=== PATIENT | male | born 1945 | race Caucasian/White ===

== ENCOUNTER 2018-11-15 17:47 | Inpatient (IN) | payer MEDICARE, MEDICAID ==
[~2018-11-15] VITALS: Ht 154.9 cm; Wt 55.8 kg
[~2018-11-15 17:47] MED LIST: ALBU18HF2 IH; ASPI-1158 PO; BUDE6HFA INH; FINA5TAB11 PO; FLUT16SP15 BOTHNSTRLS; FLUT1DIS3 IH; FLUT50DI IH; FURO20TA4 PO; LOVA40TA73 PO; MONT10TA24 PO; OMEP-265 PO; PHEN100C4 PO; POTA10CA42 PO; PROM6.254 PO; TDUR2 PO; TERA1CAP4 PO
[2018-11-15] MEDS ORDERED: ALBUTEROL (0.083%) 2.5MG/3ML NEB HHN STA (18:25)
[2018-11-15] MEDS ORDERED: IPRATROPIUM BROMIDE (0.02%) 0.5MG/2.5ML NEB HHN STA (18:25)
[2018-11-15] MEDS ORDERED: METHYLPREDNISOLONE SOD SUCC 125 MG/2 ML VIAL IV STA (18:25)
[2018-11-15 20:44] LABS: CHLORIDE 104 mEq/L (98-107)
[2018-11-15 20:46] LABS: BASOPHILS % 0.4 % (0.0-2.0); EOSINOPHILS % 7.8 % (0.0-5.0); HEMATOCRIT. 42.8 % (42.0-52.0); HEMOGLOBIN. 14.3 g/dL (14.0-18.0); LYMPHOCYTES % 13.7 % (20.0-50.0); MONOCYTES % 6.3 % (2.0-8.0); NEUTROPHILS % 71.8 % (40.0-76.0); PLATELET 298 x1000/uL (130-400); RED BLOOD CELL COUNT 4.46 mill/uL (4.7-6.1)
[2018-11-16] MEDS ORDERED: HYDROCODONE/ACETAMINOPHEN 5/325MG TABLET PO PRN (01:15)
[2018-11-16] MEDS ORDERED: DOCUSATE SODIUM 100MG CAPSULE PO PRN (01:15)
[2018-11-16] MEDS ORDERED: ACETAMINOPHEN 650MG/20.3ML UDC GT PRN (01:15)
[2018-11-16] MEDS ORDERED: CLONIDINE 0.1MG TABLET PO PRN (01:15)
[2018-11-16] MEDS ORDERED: MAGNESIUM/ALUMINUM HYDROXIDE/SIMETHICONE 30ML UDC PO PRN (01:15)
[2018-11-16] MEDS ORDERED: ONDANSETRON HCL 4MG/2ML INJ IV PRN (01:15)
[2018-11-16] MEDS ORDERED: ACETAMINOPHEN 650MG SUPP PR PRN (01:15)
[2018-11-16] MEDS ORDERED: DIPHENHYDRAMINE 50MG/ML VIAL IV PRN (01:15)
[2018-11-16] MEDS ORDERED: LORAZEPAM 2MG/ML CPJ IV PRN (01:15)
[2018-11-16] MEDS ORDERED: GUAIFENESIN 200MG/10ML SUGAR FREE UDC PO PRN (01:15)
[2018-11-16] MEDS ORDERED: ACETAMINOPHEN 325MG TABLET PO PRN (01:15)
[2018-11-16 03:13] LABS: D-DIMER 0.42 mg/L FEU (<0.50); INR 1.1
[2018-11-16] MEDS: IPRATROPIUM/ALBUTEROL 0.5-3(2.5)MG/3ML NEB INH SCH ×4 (04:30→19:47)
[2018-11-16 08:40] VITALS: BP 125/70
[2018-11-16] MEDS ORDERED: NA PHOS,M-B/NA PHOS,DI-BA ENEMA 118ML PR PRN (09:00)
[2018-11-16 10:04] VITALS: BP 125/70
[2018-11-16] MEDS ORDERED: MULT-230 MT (10:32)
[2018-11-16] MEDS ORDERED: SIMV20TA6 MT (10:32)
[2018-11-16] MEDS ORDERED: POTA-9 MT (10:35)
[2018-11-16] MEDS: IPRATROPIUM/ALBUTEROL 0.5-3(2.5)MG/3ML NEB INH PRN (12:08)
[2018-11-16] MEDS: METHYLPREDNISOLONE SOD SUCC 125 MG/2 ML VIAL IV SCH ×3 (12:32→23:52)
[2018-11-16] MEDS: ENOXAPARIN 40MG/0.4ML SYR SUBCUT SCH (12:33)
[2018-11-16] MEDS: SODIUM CHLORIDE 0.9% INJ 3ML FLUSH IVF SCH ×3 (12:34→21:43)
[2018-11-16 16:00] VITALS: BP 117/68
[2018-11-16] MEDS ORDERED: MEDICATION NOT ON FORMULARY EA (Aspirin (Aspirin Ec) 81 MG) PO SCH (17:30)
[2018-11-16] MEDS: MONTELUKAST SODIUM 10MG TABLET PO SCH (18:14)
[2018-11-16] MEDS: PHENYTOIN SODIUM EXTENDED 100MG CAPSULE PO SCH (18:15)
[2018-11-16 20:00] VITALS: BP 104/65
[2018-11-16] MEDS ORDERED: MEDICATION NOT ON FORMULARY EA (Finasteride 5 MG) PO SCH (21:00)
[2018-11-16] MEDS: FINASTERIDE 5MG TABLET PO SCH (21:43)
[2018-11-16] MEDS: FLUTICASONE PROPIONATE 50MCG/SPRAY BOTTLE BOTHNSTRLS SCH (21:43)
[2018-11-17] VITALS: BP 96/49
[2018-11-17] MEDS: IPRATROPIUM/ALBUTEROL 0.5-3(2.5)MG/3ML NEB INH SCH ×4 (02:17→20:45)
[2018-11-17 04:00] VITALS: BP 98/57
[2018-11-17] MEDS: SODIUM CHLORIDE 0.9% INJ 3ML FLUSH IVF SCH ×3 (05:32→21:48)
[2018-11-17] MEDS: METHYLPREDNISOLONE SOD SUCC 125 MG/2 ML VIAL IV SCH (05:32)
[2018-11-17 07:33] LABS: BASOPHILS % 0.7 % (0.0-2.0); HEMOGLOBIN. 12.6 g/dL (14.0-18.0); LYMPHOCYTES % 9.7 % (20.0-50.0); MEAN CORPUSCULAR VOLUME 96.2 fL (80.0-94.0); MEAN PLATELET VOLUME 8.5 fl (7.4-10.4); MONOCYTES % 2.6 % (2.0-8.0); PLATELET 272 x1000/uL (130-400); RED BLOOD CELL COUNT 3.95 mill/uL (4.7-6.1); RED CELL DISTRIBUTION WIDTH 12.8 % (11.6-14.6)
[2018-11-17 08:00] VITALS: BP 109/59
[2018-11-17 09:14] LABS: CHLORIDE 107 mEq/L (98-107)
[2018-11-17 09:22] LABS: LDL CHOLESTEROL 62 mg/dL (5-100)
[2018-11-17 09:23] LABS: HDL CHOLESTEROL 86 mg/dL (40-59)
[2018-11-17] MEDS: ENOXAPARIN 40MG/0.4ML SYR SUBCUT SCH (11:00)
[2018-11-17] MEDS: PHENYTOIN SODIUM EXTENDED 100MG CAPSULE PO SCH (11:01)
[2018-11-17] MEDS: FLUTICASONE PROPIONATE 50MCG/SPRAY BOTTLE BOTHNSTRLS SCH (11:02)
[2018-11-17] MEDS: ASPIRIN 81MG EC TABLET PO SCH (11:02)
[2018-11-17 12:00] VITALS: BP 111/60
[2018-11-17] MEDS ORDERED: P50 MT (12:17)
[2018-11-17] MEDS: MONTELUKAST SODIUM 10MG TABLET PO SCH (16:44)
[2018-11-17] MEDS: FINASTERIDE 5MG TABLET PO SCH (17:02)
[2018-11-17] MEDS: METHYLPREDNISOLONE SOD SUCC 40 MG/ML VIAL IV SCH (17:06)
[2018-11-17] MEDS: IPRATROPIUM/ALBUTEROL 0.5-3(2.5)MG/3ML NEB INH PRN (17:43)
[2018-11-17 18:55] LABS: BG BASE EXCESS -2.2 mmol/L (-2.0-2.0); BG CARBOXYHEMOGLOBIN 0.8 % (0.5-1.5); BG DEOXYHEMOGLOBIN 7.8 % (0.0-5.0); BG FRACTION INSPIRED OXYGEN 40; BG HCO3 ACT 26.6 mmol/L (22.0-26.0); BG METHEMOGLOBIN 0.2 % (0.0-1.5); BG OXYGEN SATURATION 92.1 % (92.0-98.5); BG OXYHEMOGLOBIN 91.2 % (94.0-97.0); BG PCO2 63.9 mmHg (35.0-45.0); BG PH 7.238 (7.350-7.450); BG PO2 75.6 mmHg (75.0-100.0); BG SAMPLE SITE LEFT RADIAL; BG TOTAL HEMOGLOBIN 14.6 g/dL (12.0-18.0); BG VENT MODE MASK - VENTI
[2018-11-17] MEDS ORDERED: METHYLPREDNISOLONE SOD SUCC 125 MG/2 ML VIAL IV NR (20:00)
[2018-11-17 20:01] VITALS: BP 159/121
[2018-11-17 22:00] VITALS: BP 111/75
[2018-11-18] VITALS (13 sets, daily range): BP systolic 87–117; BP diastolic 46–95
[2018-11-18] MEDS: IPRATROPIUM/ALBUTEROL 0.5-3(2.5)MG/3ML NEB INH SCH ×6 (00:44→23:44)
[2018-11-18] MEDS: SODIUM CHLORIDE 0.9% INJ 3ML FLUSH IVF SCH ×3 (05:33→20:45)
[2018-11-18] MEDS: METHYLPREDNISOLONE SOD SUCC 40 MG/ML VIAL IV SCH ×2 (05:33→20:38)
[2018-11-18] MEDS: ENOXAPARIN 40MG/0.4ML SYR SUBCUT SCH (08:31)
[2018-11-18] MEDS: ASPIRIN 81MG EC TABLET PO SCH (08:31)
[2018-11-18] MEDS: PHENYTOIN SODIUM EXTENDED 100MG CAPSULE PO SCH (08:31)
[2018-11-18 09:45] LABS: BG BASE EXCESS 2.1 mmol/L (-2.0-2.0); BG CARBOXYHEMOGLOBIN 0.9 % (0.5-1.5); BG DEOXYHEMOGLOBIN 2.5 % (0.0-5.0); BG FRACTION INSPIRED OXYGEN 30; BG HCO3 ACT 26.1 mmol/L (22.0-26.0); BG METHEMOGLOBIN 0.3 % (0.0-1.5); BG OXYGEN SATURATION 97.5 % (92.0-98.5); BG OXYHEMOGLOBIN 96.3 % (94.0-97.0); BG PCO2 38.7 mmHg (35.0-45.0); BG PH 7.447 (7.350-7.450); BG PO2 91.9 mmHg (75.0-100.0); BG SAMPLE SITE LEFT BRACHIAL; BG TOTAL HEMOGLOBIN 13.6 g/dL (12.0-18.0); BG VENT MODE NASAL CANNULA
[2018-11-18] MEDS: FLUTICASONE PROPIONATE 50MCG/SPRAY BOTTLE BOTHNSTRLS SCH (10:01)
[2018-11-18] MEDS ORDERED: PANTOPRAZOLE SODIUM 40 MG/VIAL IV NR (12:45)
[2018-11-18 15:24] LABS: BASOPHILS % 0.7 % (0.0-2.0); EOSINOPHILS % 0.4 % (0.0-5.0); HEMATOCRIT. 38.1 % (42.0-52.0); LYMPHOCYTES % 25.7 % (20.0-50.0); MEAN CORPUSCULAR HEMOGLOBIN 32.4 pg (28.0-32.0); MEAN CORPUSCULAR VOLUME 95.3 fL (80.0-94.0); MEAN PLATELET VOLUME 7.7 fl (7.4-10.4); MONOCYTES % 6.3 % (2.0-8.0); NEUTROPHILS % 66.9 % (40.0-76.0); PLATELET 317 x1000/uL (130-400); RED CELL DISTRIBUTION WIDTH 12.9 % (11.6-14.6)
[2018-11-18 15:30] LABS: CHLORIDE 106 mEq/L (98-107)
[2018-11-18] MEDS: BUDESONIDE 0.5MG/2ML NEB HHN SCH ×2 (15:40→19:55)
[2018-11-18] MEDS: FINASTERIDE 5MG TABLET PO SCH (18:03)
[2018-11-18] MEDS: MONTELUKAST SODIUM 10MG TABLET PO SCH (18:03)
[2018-11-18 19:18] LABS: CLARITY URINE CLOUDY (CLEAR); COLOR URINE YELLOW (YELLOW); KETONES URINE TRACE (NEGATIVE); LEUKOCYTE ESTERASE URINE NEGATIVE (NEGATIVE); NITRITE URINE NEGATIVE (NEGATIVE); OCCULT BLOOD URINE NEGATIVE (NEGATIVE); PROTEIN URINE TRACE (NEGATIVE); SPECIFIC GRAVITY URINE 1.033 (1.005-1.030)
[2018-11-18 19:31] LABS: *AMPHETAMINES SCREEN URINE NEGATIVE (NEGATIVE); *BARBITURATES SCREEN URINE NEGATIVE (NEGATIVE); *BENZODIAZEPINES SCREEN URINE NEGATIVE (NEGATIVE); *COCAINE SCREEN URINE NEGATIVE (NEGATIVE); METHADONE URINE SCREEN NEGATIVE (NEGATIVE); OPIATES URINE SCREEN NEGATIVE (NEGATIVE)
[2018-11-18 19:32] LABS: CANNABINOID URINE SCREEN NEGATIVE (NEGATIVE); PHENCYCLIDINE URINE SCREEN NEGATIVE (NEGATIVE)
[2018-11-18] MEDS: PREDNISONE 20MG TABLET PO SCH ×2 (20:15→20:38)
[2018-11-19] VITALS (14 sets, daily range): BP systolic 84–144; BP diastolic 55–84
[2018-11-19] MEDS: IPRATROPIUM/ALBUTEROL 0.5-3(2.5)MG/3ML NEB INH SCH ×6 (03:55→23:44)
[2018-11-19] MEDS: SODIUM CHLORIDE 0.9% INJ 3ML FLUSH IVF SCH ×3 (06:00→22:19)
[2018-11-19] MEDS: BUDESONIDE 0.5MG/2ML NEB HHN SCH ×2 (07:50→19:59)
[2018-11-19] MEDS: METHYLPREDNISOLONE SOD SUCC 40 MG/ML VIAL IV SCH (08:12)
[2018-11-19] MEDS: PHENYTOIN SODIUM EXTENDED 100MG CAPSULE PO SCH (08:12)
[2018-11-19] MEDS: PREDNISONE 20MG TABLET PO SCH (08:12)
[2018-11-19] MEDS: ASPIRIN 81MG EC TABLET PO SCH (08:12)
[2018-11-19] MEDS: ENOXAPARIN 40MG/0.4ML SYR SUBCUT SCH (08:13)
[2018-11-19] MEDS: FLUTICASONE PROPIONATE 50MCG/SPRAY BOTTLE BOTHNSTRLS SCH (08:13)
[2018-11-19] MEDS ORDERED: PANTOPRAZOLE SODIUM 40 MG/VIAL IV SCH (09:00)
[2018-11-19] MEDS: MONTELUKAST SODIUM 10MG TABLET PO SCH (17:05)
[2018-11-19] MEDS: FINASTERIDE 5MG TABLET PO SCH (17:05)
== END 2018-11-20 01:30 | disposition home or self-care (01) | DRG 189 ==
LOC: ER 17:47 → EDBEDREQ 21:23 → 8WST 11-16 07:50 → ENRESERV 11-16 07:50 → 5EST 11-17 18:46
PROVIDERS: ADMIT Family Medicine; ATTEND Family Medicine
PROC: 5A09357 Assistance with Respiratory Ventilation, Less than 24 Consecutive Hours, Continuous Positive Airway Pressure (ICD-10-PCS; principal; 2018-11-17)
DX: J96.00 Acute respiratory failure, unspecified whether with hypoxia or hypercapnia (principal); J44.1 Chronic obstructive pulmonary disease with (acute) exacerbation; E46 Unspecified protein-calorie malnutrition; G40.909 Epilepsy, unspecified, not intractable, without status epilepticus; N40.0 Benign prostatic hyperplasia without lower urinary tract symptoms; E78.5 Hyperlipidemia, unspecified; J32.9 Chronic sinusitis, unspecified; J98.4 Other disorders of lung; K21.9 Gastro-esophageal reflux disease without esophagitis; M24.571 Contracture, right ankle; M24.572 Contracture, left ankle; G80.9 Cerebral palsy, unspecified; L57.0 Actinic keratosis; D63.8 Anemia in other chronic diseases classified elsewhere; Z68.23 Body mass index [BMI] 23.0-23.9, adult; L89.621 Pressure ulcer of left heel, stage 1; L89.611 Pressure ulcer of right heel, stage 1
CPT/HCPCS: 36415; 36600; 71045; 80061; 80305; 82375; 82805; 83880; 84484; 85379; 87804; 92610; 93005; 93306; 94640; 96374; 99285; C1725; C9113; J1650; J2920; J2930; J7512; J7620; J7626; A4315

== ENCOUNTER 2018-12-11 12:19 | Inpatient (IN) | payer MEDICARE, MEDICAID ==
[~2018-12-11] VITALS: Ht 152.4 cm; Wt 44.5 kg
[~2018-12-11 12:19] MED LIST changes: -LOVA40TA73 PO; +MULT-230 MT; +P50 MT; +POTA-9 MT; -POTA10CA42 PO; -PROM6.254 PO; +SIMV20TA6 MT; -TERA1CAP4 PO
[2018-12-11] MEDS ORDERED: ALBUTEROL (0.083%) 2.5MG/3ML NEB HHN STA (12:26)
[2018-12-11] MEDS ORDERED: METHYLPREDNISOLONE SOD SUCC 125 MG/2 ML VIAL IV STA (12:26)
[2018-12-11] MEDS ORDERED: MAGNESIUM 2 G PREMIX 50 ML IV STA (12:26)
[2018-12-11] MEDS ORDERED: IPRATROPIUM BROMIDE (0.02%) 0.5MG/2.5ML NEB HHN STA (12:26)
[2018-12-11 13:05] LABS: CHLORIDE 98 mEq/L (98-107)
[2018-12-11 13:06] LABS: HEMATOCRIT. 43.6 % (42.0-52.0); HEMOGLOBIN. 14.4 g/dL (14.0-18.0); MEAN CORPUSCULAR HEMOGLOBIN 32.1 pg (28.0-32.0); MEAN CORPUSCULAR VOLUME 97.5 fL (80.0-94.0); MEAN PLATELET VOLUME 7.5 fl (7.4-10.4); PLATELET 241 x1000/uL (130-400); PROTHROMBIN TIME 10.2 sec (9.1-11.1); RED BLOOD CELL COUNT 4.48 mill/uL (4.7-6.1); RED CELL DISTRIBUTION WIDTH 13.8 % (11.6-14.6)
[2018-12-11 13:59] LABS: PLATELET ESTIMATE NORMAL
[2018-12-11 14:07] LABS: BG BASE EXCESS 3.6 mmol/L (-2.0-2.0); BG BILEVEL POS AIRWAY PRESSURE ST=15/5; BG CARBOXYHEMOGLOBIN 0.6 % (0.5-1.5); BG DEOXYHEMOGLOBIN 0.4 % (0.0-5.0); BG FRACTION INSPIRED OXYGEN 99.8; BG HCO3 ACT 27.8 mmol/L (22.0-26.0); BG METHEMOGLOBIN 0.2 % (0.0-1.5); BG OXYGEN SATURATION 99.6 % (92.0-98.5); BG OXYHEMOGLOBIN 98.8 % (94.0-97.0); BG PCO2 40.6 mmHg (35.0-45.0); BG PH 7.453 (7.350-7.450); BG PO2 330.4 mmHg (75.0-100.0); BG PRESSURE SUPPORT 10; BG SAMPLE SITE LEFT BRACHIAL; BG TOTAL HEMOGLOBIN 14.3 g/dL (12.0-18.0); BG VENT RATE 14 set
[2018-12-11] MEDS ORDERED: IPRATROPIUM/ALBUTEROL 0.5-3(2.5)MG/3ML NEB HHN PRN (14:15)
[2018-12-11] MEDS ORDERED: LORAZEPAM 0.5MG TABLET PO PRN (15:00)
[2018-12-11] MEDS ORDERED: ONDANSETRON HCL 4MG/2ML INJ IV PRN (15:00)
[2018-12-11] MEDS ORDERED: ASPIRIN 81MG TABLET PO SCH ×2 (15:00→22:00)
[2018-12-11] MEDS ORDERED: DEXT 5%/0.9% NACL 1,000 ML IV ONE (15:00)
[2018-12-11] MEDS ORDERED: DOCUSATE SODIUM 100MG CAPSULE PO PRN (15:00)
[2018-12-11] MEDS ORDERED: ACETAMINOPHEN 325MG TABLET PO PRN (15:00)
[2018-12-11] MEDS ORDERED: HYDROCODONE/ACETAMINOPHEN 5/325MG TABLET PO PRN (15:00)
[2018-12-11] MEDS ORDERED: CLONIDINE 0.1MG TABLET PO PRN (15:00)
[2018-12-11] MEDS ORDERED: LEVOFLOXACIN 500MG PREMIX 100 ML IV ONE ×2 (15:45→23:00)
[2018-12-11 15:57] LABS: THEOPHYLLINE 5.8 ug/mL (10-20)
[2018-12-11 16:17] LABS: CLARITY URINE CLEAR (CLEAR); COLOR URINE YELLOW (YELLOW); KETONES URINE NEGATIVE (NEGATIVE); LEUKOCYTE ESTERASE URINE NEGATIVE (NEGATIVE); NITRITE URINE NEGATIVE (NEGATIVE); OCCULT BLOOD URINE 2+ (NEGATIVE); PROTEIN URINE NEGATIVE (NEGATIVE); UROBILINOGEN URINE 0.2 E.U./dL (0.2-1.0)
[2018-12-11] MEDS: IPRATROPIUM BROMIDE (0.02%) 0.5MG/2.5ML NEB HHN SCH (20:15)
[2018-12-11] MEDS ORDERED: AZITHROMYCIN 500 MG in DEXT 5% WATER 250 ML IV SCH (22:00)
[2018-12-11] MEDS: METHYLPREDNISOLONE SOD SUCC 40 MG/ML VIAL IV SCH (22:04)
[2018-12-11] MEDS: PHENYTOIN SODIUM EXTENDED 100MG CAPSULE PO SCH (22:05)
[2018-12-11] MEDS: ATORVASTATIN CALCIUM 20MG TABLET PO SCH (22:05)
[2018-12-11] MEDS: OMEPRAZOLE 20MG CAPSULE EXTENDED RELEASE PO SCH (22:06)
[2018-12-11] MEDS: MONTELUKAST SODIUM 10MG TABLET PO SCH (22:06)
[2018-12-11 23:31] VITALS: BP 98/51
[2018-12-12] VITALS (12 sets, daily range): BP systolic 98–134; BP diastolic 35–74
[2018-12-12] MEDS: BUDESONIDE 0.5MG/2ML NEB HHN SCH ×3 (00:18→21:06)
[2018-12-12] MEDS: IPRATROPIUM BROMIDE (0.02%) 0.5MG/2.5ML NEB HHN SCH ×4 (00:18→21:06)
[2018-12-12] MEDS: METHYLPREDNISOLONE SOD SUCC 40 MG/ML VIAL IV SCH ×2 (04:41→12:43)
[2018-12-12 07:43] LABS: CHLORIDE 101 mEq/L (98-107)
[2018-12-12 07:50] LABS: BASOPHILS % 0.4 % (0.0-2.0); EOSINOPHILS % 0.4 % (0.0-5.0); HEMATOCRIT. 38.3 % (42.0-52.0); HEMOGLOBIN. 12.9 g/dL (14.0-18.0); LYMPHOCYTES % 16.3 % (20.0-50.0); MEAN CORPUSCULAR HEMOGLOBIN 32.5 pg (28.0-32.0); MEAN CORPUSCULAR VOLUME 96.3 fL (80.0-94.0); MEAN PLATELET VOLUME 7.7 fl (7.4-10.4); MONOCYTES % 7.3 % (2.0-8.0); NEUTROPHILS % 75.6 % (40.0-76.0); PLATELET 256 x1000/uL (130-400); RED BLOOD CELL COUNT 3.98 mill/uL (4.7-6.1); RED CELL DISTRIBUTION WIDTH 13.7 % (11.6-14.6)
[2018-12-12] MEDS ORDERED: OMEPRAZOLE 20MG CAPSULE EXTENDED RELEASE PO SCH (07:50)
[2018-12-12] MEDS: FINASTERIDE 5MG TABLET PO SCH (09:03)
[2018-12-12] MEDS: PHENYTOIN SODIUM EXTENDED 100MG CAPSULE PO SCH (09:03)
[2018-12-12] MEDS: OMEPRAZOLE 20MG CAPSULE EXTENDED RELEASE PO SCH (09:04)
[2018-12-12] MEDS: MULTIVITAMINS,THER W-MINERALS TABLET PO SCH (09:05)
[2018-12-12] MEDS: FLUTICASONE PROPIONATE 50MCG/SPRAY BOTTLE BOTHNSTRLS SCH (09:13)
[2018-12-12] MEDS ORDERED: AZITHROMYCIN 500 MG in DEXT 5% WATER 250 ML IV SCH (18:00)
[2018-12-12] MEDS: MONTELUKAST SODIUM 10MG TABLET PO SCH (18:29)
[2018-12-12] MEDS: ATORVASTATIN CALCIUM 20MG TABLET PO SCH (20:40)
[2018-12-12] MEDS: LEVETIRACETAM 500MG TABLET PO SCH (20:40)
[2018-12-13] VITALS (12 sets, daily range): BP systolic 94–143; BP diastolic 48–73
[2018-12-13] MEDS: IPRATROPIUM BROMIDE (0.02%) 0.5MG/2.5ML NEB HHN SCH ×4 (02:04→20:47)
[2018-12-13 07:15] LABS: HEMATOCRIT. 37.7 % (42.0-52.0); HEMOGLOBIN. 12.7 g/dL (14.0-18.0); MEAN CORPUSCULAR HEMOGLOBIN 32.5 pg (28.0-32.0); MEAN CORPUSCULAR VOLUME 96.6 fL (80.0-94.0); MEAN PLATELET VOLUME 7.9 fl (7.4-10.4); PLATELET 254 x1000/uL (130-400); RED CELL DISTRIBUTION WIDTH 13.9 % (11.6-14.6)
[2018-12-13 07:25] LABS: CHLORIDE 108 mEq/L (98-107)
[2018-12-13] MEDS: BUDESONIDE 0.5MG/2ML NEB HHN SCH ×2 (08:15→20:47)
[2018-12-13] MEDS: OMEPRAZOLE 20MG CAPSULE EXTENDED RELEASE PO SCH (08:17)
[2018-12-13] MEDS: PREDNISONE 20MG TABLET PO SCH (09:15)
[2018-12-13] MEDS: LEVETIRACETAM 500MG TABLET PO SCH ×2 (09:15→20:53)
[2018-12-13] MEDS: MULTIVITAMINS,THER W-MINERALS TABLET PO SCH (09:15)
[2018-12-13] MEDS: FINASTERIDE 5MG TABLET PO SCH (09:15)
[2018-12-13] MEDS: FLUTICASONE PROPIONATE 50MCG/SPRAY BOTTLE BOTHNSTRLS SCH (09:15)
[2018-12-13] MEDS: MONTELUKAST SODIUM 10MG TABLET PO SCH (17:29)
[2018-12-13 18:06] LABS: PLATELET ESTIMATE NORMAL
[2018-12-13] MEDS: ATORVASTATIN CALCIUM 20MG TABLET PO SCH (20:53)
[2018-12-14] VITALS (11 sets, daily range): BP systolic 87–129; BP diastolic 46–84
[2018-12-14] MEDS: IPRATROPIUM BROMIDE (0.02%) 0.5MG/2.5ML NEB HHN SCH ×4 (02:15→20:10)
[2018-12-14 07:30] LABS: CHLORIDE 108 mEq/L (98-107)
[2018-12-14] MEDS: BUDESONIDE 0.5MG/2ML NEB HHN SCH ×2 (07:51→20:09)
[2018-12-14 08:03] LABS: HEMATOCRIT. 39.8 % (42.0-52.0); HEMOGLOBIN. 13.3 g/dL (14.0-18.0); MEAN CORPUSCULAR VOLUME 96.2 fL (80.0-94.0); MEAN PLATELET VOLUME 7.8 fl (7.4-10.4); PLATELET 280 x1000/uL (130-400); RED BLOOD CELL COUNT 4.14 mill/uL (4.7-6.1); RED CELL DISTRIBUTION WIDTH 13.8 % (11.6-14.6)
[2018-12-14] MEDS: PREDNISONE 20MG TABLET PO SCH (08:33)
[2018-12-14] MEDS: MULTIVITAMINS,THER W-MINERALS TABLET PO SCH (08:33)
[2018-12-14] MEDS: LEVETIRACETAM 500MG TABLET PO SCH ×2 (08:33→20:46)
[2018-12-14] MEDS: OMEPRAZOLE 20MG CAPSULE EXTENDED RELEASE PO SCH (08:33)
[2018-12-14] MEDS: FINASTERIDE 5MG TABLET PO SCH (08:33)
[2018-12-14] MEDS: FLUTICASONE PROPIONATE 50MCG/SPRAY BOTTLE BOTHNSTRLS SCH (09:04)
[2018-12-14 12:49] LABS: PLATELET ESTIMATE NORMAL
[2018-12-14] MEDS: MONTELUKAST SODIUM 10MG TABLET PO SCH (17:32)
[2018-12-14] MEDS: ATORVASTATIN CALCIUM 20MG TABLET PO SCH (20:46)
[2018-12-15] VITALS: BP 91/45
[2018-12-15] MEDS: IPRATROPIUM BROMIDE (0.02%) 0.5MG/2.5ML NEB HHN SCH ×3 (00:55→14:38)
[2018-12-15 02:00] VITALS: BP 110/64
[2018-12-15 04:00] VITALS: BP 113/69
[2018-12-15 06:00] VITALS: BP 117/68
[2018-12-15 07:57] LABS: BASOPHILS % 0.7 % (0.0-2.0); EOSINOPHILS % 4.9 % (0.0-5.0); HEMATOCRIT. 41.4 % (42.0-52.0); HEMOGLOBIN. 13.9 g/dL (14.0-18.0); LYMPHOCYTES % 34.3 % (20.0-50.0); MEAN CORPUSCULAR HEMOGLOBIN 32.1 pg (28.0-32.0); MEAN CORPUSCULAR VOLUME 95.9 fL (80.0-94.0); MEAN PLATELET VOLUME 7.7 fl (7.4-10.4); MONOCYTES % 6.4 % (2.0-8.0); NEUTROPHILS % 53.7 % (40.0-76.0); PLATELET 301 x1000/uL (130-400); RED BLOOD CELL COUNT 4.32 mill/uL (4.7-6.1); RED CELL DISTRIBUTION WIDTH 13.4 % (11.6-14.6)
[2018-12-15] MEDS: BUDESONIDE 0.5MG/2ML NEB HHN SCH (07:59)
[2018-12-15 08:00] VITALS: BP 122/67
[2018-12-15 08:06] LABS: CHLORIDE 106 mEq/L (98-107)
[2018-12-15] MEDS: PREDNISONE 20MG TABLET PO SCH (08:37)
[2018-12-15] MEDS: OMEPRAZOLE 20MG CAPSULE EXTENDED RELEASE PO SCH (08:37)
[2018-12-15] MEDS: LEVETIRACETAM 500MG TABLET PO SCH (08:37)
[2018-12-15] MEDS: FINASTERIDE 5MG TABLET PO SCH (08:37)
[2018-12-15] MEDS: MULTIVITAMINS,THER W-MINERALS TABLET PO SCH (08:37)
[2018-12-15] MEDS ORDERED: KEPP500 PO (11:48)
[2018-12-15] MEDS ORDERED: ATOR20TA PO (11:48)
[2018-12-15] MEDS ORDERED: PRED1TAB MT (11:48)
[2018-12-15] MEDS: MONTELUKAST SODIUM 10MG TABLET PO SCH (17:38)
[2018-12-15 17:52] VITALS: BP 129/73
== END 2018-12-15 18:47 | disposition home or self-care (01) | DRG 189 ==
LOC: ER 12:19 → EDBEDREQSVC 12:34 → 5EST 13:58 → EDBEDREQTM 14:16 → EDBEDREQ 14:16 → ENRESERV 17:54 → EDBEDREQ 19:49 → 5EST 12-14 15:45
PROVIDERS: ADMIT Internal Medicine; ATTEND Internal Medicine
PROC: 5A09357 Assistance with Respiratory Ventilation, Less than 24 Consecutive Hours, Continuous Positive Airway Pressure (ICD-10-PCS; principal; 2018-12-11)
DX: J96.01 Acute respiratory failure with hypoxia (principal); J44.1 Chronic obstructive pulmonary disease with (acute) exacerbation; T42.0X5A Adverse effect of hydantoin derivatives, initial encounter; I10 Essential (primary) hypertension; R00.0 Tachycardia, unspecified; D72.829 Elevated white blood cell count, unspecified; Z53.20 Procedure and treatment not carried out because of patient's decision for unspecified reasons; J32.9 Chronic sinusitis, unspecified; G40.909 Epilepsy, unspecified, not intractable, without status epilepticus; N40.0 Benign prostatic hyperplasia without lower urinary tract symptoms; G80.9 Cerebral palsy, unspecified; E78.5 Hyperlipidemia, unspecified; Y92.89 Other specified places as the place of occurrence of the external cause; Z79.899 Other long term (current) drug therapy
CPT/HCPCS: 36415; 36600; 70551; 71045; 80048; 80185; 80198; 82375; 82805; 83605; 83880; 84145; 84484; 87804; 93005; 94640; 96365; 96375; 99291; J0456; J1956; J2920; J2930; J3475; J7042; J7060; J7512; J7611; J7620; J7626

== ENCOUNTER 2019-01-20 00:49 | Inpatient (IN) | payer MEDICARE, MEDICAID ==
[~2019-01-20] VITALS: Ht 162.6 cm; Wt 44.6 kg
[~2019-01-20 00:49] MED LIST changes: +ATOR20TA PO; -BUDE6HFA INH; -FLUT16SP15 BOTHNSTRLS; -FURO20TA4 PO; +KEPP500 PO; -P50 MT; -PHEN100C4 PO; -POTA-9 MT; -SIMV20TA6 MT; -TDUR2 PO
[2019-01-20] MEDS ORDERED: IPRATROPIUM BROMIDE (0.02%) 0.5MG/2.5ML NEB HHN STA (01:50)
[2019-01-20] MEDS ORDERED: ONDANSETRON HCL 4MG/2ML INJ IV STA (01:50)
[2019-01-20] MEDS ORDERED: METHYLPREDNISOLONE SOD SUCC 125 MG/2 ML VIAL IV STA (01:50)
[2019-01-20] MEDS ORDERED: MAGNESIUM 2 G PREMIX 50 ML IV ONE (02:00)
[2019-01-20] MEDS: ALBUTEROL (0.083%) 2.5MG/3ML NEB HHN SCH ×3 (02:14→03:30)
[2019-01-20 02:35] LABS: CHLORIDE 102 mEq/L (98-107)
[2019-01-20 02:39] LABS: BG BASE EXCESS 3.5 mmol/L (-2.0-2.0); BG CARBOXYHEMOGLOBIN 0.4 % (0.5-1.5); BG DEOXYHEMOGLOBIN 4.1 % (0.0-5.0); BG FRACTION INSPIRED OXYGEN 28; BG HCO3 ACT 27.6 mmol/L (22.0-26.0); BG METHEMOGLOBIN 0.1 % (0.0-1.5); BG OXYGEN SATURATION 95.9 % (92.0-98.5); BG OXYHEMOGLOBIN 95.4 % (94.0-97.0); BG PCO2 40.2 mmHg (35.0-45.0); BG PH 7.455 (7.350-7.450); BG PO2 82.7 mmHg (75.0-100.0); BG SAMPLE SITE LEFT RADIAL; BG TOTAL HEMOGLOBIN 12.8 g/dL (12.0-18.0); BG VENT MODE NASAL CANNULA
[2019-01-20 02:40] LABS: HEMATOCRIT. 38.1 % (42.0-52.0); HEMOGLOBIN. 13.1 g/dL (14.0-18.0); MEAN CORPUSCULAR HEMOGLOBIN 32.8 pg (28.0-32.0); MEAN CORPUSCULAR VOLUME 95.4 fL (80.0-94.0); MEAN PLATELET VOLUME 7.7 fl (7.4-10.4); PLATELET 331 x1000/uL (130-400); RED BLOOD CELL COUNT 3.99 mill/uL (4.7-6.1); RED CELL DISTRIBUTION WIDTH 13.9 % (11.6-14.6)
[2019-01-20 09:43] LABS: PLATELET ESTIMATE NORMAL
[2019-01-20] MEDS ORDERED: GUAIFENESIN 200MG/10ML SUGAR FREE UDC PO PRN (09:45)
[2019-01-20] MEDS ORDERED: NITROGLYCERIN 0.4MG TABLET SL SL PRN (09:45)
[2019-01-20] MEDS ORDERED: CLONIDINE 0.1MG TABLET PO PRN (09:45)
[2019-01-20] MEDS ORDERED: ONDANSETRON HCL 4MG/2ML INJ IV PRN (09:45)
[2019-01-20] MEDS ORDERED: MAGNESIUM/ALUMINUM HYDROXIDE/SIMETHICONE 30ML UDC PO PRN (09:45)
[2019-01-20] MEDS ORDERED: NA PHOS,M-B/NA PHOS,DI-BA ENEMA 118ML PR PRN (09:45)
[2019-01-20] MEDS ORDERED: LEVOFLOXACIN 500MG PREMIX 100 ML IV SCH (09:45)
[2019-01-20] MEDS ORDERED: DOCUSATE SODIUM 100MG CAPSULE PO PRN (09:45)
[2019-01-20] MEDS ORDERED: ACETAMINOPHEN 325MG TABLET PO PRN (09:45)
[2019-01-20] MEDS ORDERED: LEVOFLOXACIN 500MG PREMIX 100 ML IV NR ×2 (12:00→15:30)
[2019-01-20] MEDS ORDERED: HALOPERIDOL LACTATE 5MG/ML VIAL IM PRN (14:18)
[2019-01-20] MEDS ORDERED: TRAMADOL 50MG TABLET PO PRN (14:25)
[2019-01-20 15:54] LABS: CREATINE KINASE 181 IU/L (39-308)
[2019-01-20 15:55] LABS: CREATINE KINASE MB FRACTION 2.1 ng/mL (0.5-3.6)
[2019-01-20] MEDS: GUAIFENESIN/DM 600MG/30MG ER TAB 12HR PO SCH (17:30)
[2019-01-20] MEDS: METHYLPREDNISOLONE SOD SUCC 125 MG/2 ML VIAL IV SCH ×2 (17:31→21:35)
[2019-01-20] MEDS: ENOXAPARIN 40MG/0.4ML SYR SUBCUT SCH (17:32)
[2019-01-20 18:37] VITALS: BP 120/67
[2019-01-20 18:39] VITALS: BP 120/67
[2019-01-20 20:12] VITALS: BP 117/73
[2019-01-20 20:45] VITALS: BP 108/58
[2019-01-20] MEDS: FAMOTIDINE 20MG TABLET PO SCH (21:35)
[2019-01-20] MEDS: LEVETIRACETAM 500MG TABLET PO SCH (21:35)
[2019-01-20] MEDS: ZOLPIDEM TARTRATE 5MG TABLET PO PRN (21:35)
[2019-01-20] MEDS: ASCORBIC ACID 500 MG TABLET PO SCH (21:35)
[2019-01-20] MEDS: IPRATROPIUM/ALBUTEROL 0.5-3(2.5)MG/3ML NEB INH PRN (21:42)
[2019-01-20 21:45] VITALS: BP 126/63
[2019-01-20 23:45] VITALS: BP 113/62
[2019-01-20 23:56] LABS: CREATINE KINASE 180 IU/L (39-308)
[2019-01-20 23:57] LABS: CREATINE KINASE MB FRACTION 2.2 ng/mL (0.5-3.6)
[2019-01-21] VITALS (18 sets, daily range): BP systolic 90–187; BP diastolic 55–107
[2019-01-21] MEDS: METHYLPREDNISOLONE SOD SUCC 125 MG/2 ML VIAL IV SCH ×3 (06:09→21:27)
[2019-01-21] MEDS: GUAIFENESIN/DM 600MG/30MG ER TAB 12HR PO SCH ×2 (06:09→17:15)
[2019-01-21] MEDS: IPRATROPIUM/ALBUTEROL 0.5-3(2.5)MG/3ML NEB INH PRN ×2 (06:23→13:05)
[2019-01-21] MEDS: ASCORBIC ACID 500 MG TABLET PO SCH ×2 (08:39→21:27)
[2019-01-21] MEDS: LEVETIRACETAM 500MG TABLET PO SCH ×2 (08:39→21:27)
[2019-01-21] MEDS: ZINC SULFATE 220 MG ( 50 ) CAPSULE PO SCH (08:39)
[2019-01-21] MEDS: ASPIRIN 325MG EC TABLET PO SCH (08:39)
[2019-01-21] MEDS ORDERED: METHYLPREDNISOLONE SOD SUCC 125 MG/2 ML VIAL IV SCH (14:00)
[2019-01-21] MEDS: LORATADINE 10MG TABLET PO SCH (14:12)
[2019-01-21] MEDS: ENOXAPARIN 40MG/0.4ML SYR SUBCUT SCH (15:14)
[2019-01-21] MEDS: LEVOFLOXACIN 250MG PREMIX 50 ML IV SCH (15:14)
[2019-01-21] MEDS: IPRATROPIUM BROMIDE (0.02%) 0.5MG/2.5ML NEB HHN SCH (15:51)
[2019-01-21] MEDS: MONTELUKAST SODIUM 10MG TABLET PO SCH (17:15)
[2019-01-21] MEDS: ZOLPIDEM TARTRATE 5MG TABLET PO PRN (21:27)
[2019-01-21] MEDS: FAMOTIDINE 20MG TABLET PO SCH (21:27)
[2019-01-22] VITALS (15 sets, daily range): BP systolic 95–168; BP diastolic 49–88
[2019-01-22] MEDS: IPRATROPIUM/ALBUTEROL 0.5-3(2.5)MG/3ML NEB INH PRN (04:27)
[2019-01-22] MEDS: GUAIFENESIN/DM 600MG/30MG ER TAB 12HR PO SCH ×2 (06:40→18:10)
[2019-01-22] MEDS: METHYLPREDNISOLONE SOD SUCC 125 MG/2 ML VIAL IV SCH ×3 (06:40→21:17)
[2019-01-22] MEDS: IPRATROPIUM BROMIDE (0.02%) 0.5MG/2.5ML NEB HHN SCH ×5 (08:32→23:35)
[2019-01-22] MEDS: LORATADINE 10MG TABLET PO SCH (08:53)
[2019-01-22] MEDS: LEVETIRACETAM 500MG TABLET PO SCH ×2 (08:53→21:17)
[2019-01-22] MEDS: ZINC SULFATE 220 MG ( 50 ) CAPSULE PO SCH (08:53)
[2019-01-22] MEDS: ASPIRIN 325MG EC TABLET PO SCH (08:54)
[2019-01-22] MEDS: ASCORBIC ACID 500 MG TABLET PO SCH ×2 (08:54→21:17)
[2019-01-22] MEDS: LEVOFLOXACIN 250MG PREMIX 50 ML IV SCH (15:04)
[2019-01-22] MEDS: ENOXAPARIN 40MG/0.4ML SYR SUBCUT SCH (15:04)
[2019-01-22] MEDS: MONTELUKAST SODIUM 10MG TABLET PO SCH (18:10)
[2019-01-22] MEDS: ZOLPIDEM TARTRATE 5MG TABLET PO PRN (21:17)
[2019-01-22] MEDS: FAMOTIDINE 20MG TABLET PO SCH (21:20)
[2019-01-23] VITALS (15 sets, daily range): BP systolic 99–136; BP diastolic 46–78
[2019-01-23] MEDS: IPRATROPIUM BROMIDE (0.02%) 0.5MG/2.5ML NEB HHN SCH ×4 (04:51→16:49)
[2019-01-23] MEDS: GUAIFENESIN/DM 600MG/30MG ER TAB 12HR PO SCH ×2 (05:57→18:56)
[2019-01-23] MEDS: METHYLPREDNISOLONE SOD SUCC 125 MG/2 ML VIAL IV SCH (05:57)
[2019-01-23] MEDS: LEVETIRACETAM 500MG TABLET PO SCH ×2 (09:57→21:41)
[2019-01-23] MEDS: ASPIRIN 325MG EC TABLET PO SCH (09:57)
[2019-01-23] MEDS: ASCORBIC ACID 500 MG TABLET PO SCH ×2 (09:57→21:41)
[2019-01-23] MEDS: LORATADINE 10MG TABLET PO SCH (09:57)
[2019-01-23] MEDS: ZINC SULFATE 220 MG ( 50 ) CAPSULE PO SCH (09:57)
[2019-01-23] MEDS: ENOXAPARIN 40MG/0.4ML SYR SUBCUT SCH (15:59)
[2019-01-23] MEDS: MONTELUKAST SODIUM 10MG TABLET PO SCH (16:00)
[2019-01-23] MEDS: LEVOFLOXACIN 250MG PREMIX 50 ML IV SCH (16:26)
[2019-01-23] MEDS: METHYLPREDNISOLONE SOD SUCC 40 MG/ML VIAL IV SCH (18:57)
[2019-01-23] MEDS: ZOLPIDEM TARTRATE 5MG TABLET PO PRN (21:41)
[2019-01-23] MEDS: FAMOTIDINE 20MG TABLET PO SCH (21:41)
[2019-01-23] MEDS: IPRATROPIUM/ALBUTEROL 0.5-3(2.5)MG/3ML NEB INH PRN (22:10)
[2019-01-24] VITALS (11 sets, daily range): BP systolic 101–152; BP diastolic 54–117
[2019-01-24] MEDS: IPRATROPIUM BROMIDE (0.02%) 0.5MG/2.5ML NEB HHN SCH ×6 (00:15→20:22)
[2019-01-24] MEDS: GUAIFENESIN/DM 600MG/30MG ER TAB 12HR PO SCH ×2 (05:32→17:15)
[2019-01-24] MEDS: METHYLPREDNISOLONE SOD SUCC 40 MG/ML VIAL IV SCH ×2 (05:36→17:15)
[2019-01-24] MEDS: LORATADINE 10MG TABLET PO SCH (10:34)
[2019-01-24] MEDS: ASPIRIN 325MG EC TABLET PO SCH (10:34)
[2019-01-24] MEDS: LEVETIRACETAM 500MG TABLET PO SCH ×2 (10:35→22:03)
[2019-01-24] MEDS: ASCORBIC ACID 500 MG TABLET PO SCH ×2 (10:35→22:04)
[2019-01-24] MEDS: ZINC SULFATE 220 MG ( 50 ) CAPSULE PO SCH (10:35)
[2019-01-24] MEDS: ENOXAPARIN 40MG/0.4ML SYR SUBCUT SCH (14:50)
[2019-01-24] MEDS: LEVOFLOXACIN 250MG PREMIX 50 ML IV SCH (14:50)
[2019-01-24] MEDS: MONTELUKAST SODIUM 10MG TABLET PO SCH (17:14)
[2019-01-24] MEDS: FAMOTIDINE 20MG TABLET PO SCH (22:03)
[2019-01-25] VITALS: BP 105/59
[2019-01-25] MEDS: IPRATROPIUM BROMIDE (0.02%) 0.5MG/2.5ML NEB HHN SCH ×6 (00:21→20:38)
[2019-01-25] MEDS: GUAIFENESIN/DM 600MG/30MG ER TAB 12HR PO SCH ×2 (05:14→18:52)
[2019-01-25] MEDS: METHYLPREDNISOLONE SOD SUCC 40 MG/ML VIAL IV SCH ×2 (05:14→18:52)
[2019-01-25 08:00] VITALS: BP 118/67
[2019-01-25] MEDS: LORATADINE 10MG TABLET PO SCH (11:39)
[2019-01-25] MEDS: ZINC SULFATE 220 MG ( 50 ) CAPSULE PO SCH (11:39)
[2019-01-25] MEDS: ASCORBIC ACID 500 MG TABLET PO SCH ×2 (11:39→20:29)
[2019-01-25] MEDS: LEVETIRACETAM 500MG TABLET PO SCH ×2 (11:39→20:28)
[2019-01-25] MEDS: ASPIRIN 325MG EC TABLET PO SCH (11:39)
[2019-01-25] MEDS: LEVOFLOXACIN 250MG TABLET PO SCH (11:40)
[2019-01-25 12:00] VITALS: BP 109/69
[2019-01-25] MEDS: MONTELUKAST SODIUM 10MG TABLET PO SCH (16:08)
[2019-01-25] MEDS: ENOXAPARIN 40MG/0.4ML SYR SUBCUT SCH (16:08)
[2019-01-25 17:00] VITALS: BP 107/48
[2019-01-25 20:00] VITALS: BP 124/59
[2019-01-25] MEDS: FAMOTIDINE 20MG TABLET PO SCH (20:28)
[2019-01-25 22:00] VITALS: BP 107/61
[2019-01-26] VITALS (7 sets, daily range): BP systolic 95–119; BP diastolic 48–73
[2019-01-26] MEDS: IPRATROPIUM BROMIDE (0.02%) 0.5MG/2.5ML NEB HHN SCH ×3 (00:34→15:50)
[2019-01-26] MEDS: GUAIFENESIN/DM 600MG/30MG ER TAB 12HR PO SCH (05:58)
[2019-01-26] MEDS: METHYLPREDNISOLONE SOD SUCC 40 MG/ML VIAL IV SCH (05:58)
[2019-01-26] MEDS: LORATADINE 10MG TABLET PO SCH (09:26)
[2019-01-26] MEDS: ASCORBIC ACID 500 MG TABLET PO SCH (09:26)
[2019-01-26] MEDS: ZINC SULFATE 220 MG ( 50 ) CAPSULE PO SCH (09:26)
[2019-01-26] MEDS: LEVETIRACETAM 500MG TABLET PO SCH (09:26)
[2019-01-26] MEDS: ASPIRIN 325MG EC TABLET PO SCH (09:26)
[2019-01-26] MEDS: LEVOFLOXACIN 250MG TABLET PO SCH (11:09)
[2019-01-26] MEDS: ENOXAPARIN 40MG/0.4ML SYR SUBCUT SCH (15:00)
[2019-01-27] MEDS ORDERED: PREDNISONE 20MG TABLET PO SCH (09:00)
== END 2019-01-26 19:11 | DRG 871 ==
LOC: ER 00:49 → 5EST 04:38 → EDBEDREQ 04:40 → EDBEDREQTM 04:40 → SUPCPDRO 09:41 → ENRESERV 12:55 → 5EST 13:57
PROVIDERS: ADMIT Internal Medicine; ATTEND Internal Medicine
PROC: 5A09357 Assistance with Respiratory Ventilation, Less than 24 Consecutive Hours, Continuous Positive Airway Pressure (ICD-10-PCS; principal; 2019-01-20)
PROC: 5A09357 Assistance with Respiratory Ventilation, Less than 24 Consecutive Hours, Continuous Positive Airway Pressure (ICD-10-PCS; 2019-01-21)
PROC: 5A09357 Assistance with Respiratory Ventilation, Less than 24 Consecutive Hours, Continuous Positive Airway Pressure (ICD-10-PCS; 2019-01-22)
PROC: 5A09357 Assistance with Respiratory Ventilation, Less than 24 Consecutive Hours, Continuous Positive Airway Pressure (ICD-10-PCS; 2019-01-24)
DX: A41.9 Sepsis, unspecified organism (principal); J96.01 Acute respiratory failure with hypoxia; G92 Toxic encephalopathy; J44.1 Chronic obstructive pulmonary disease with (acute) exacerbation; I50.32 Chronic diastolic (congestive) heart failure; E87.3 Alkalosis; D63.8 Anemia in other chronic diseases classified elsewhere; D72.1 Eosinophilia; E78.5 Hyperlipidemia, unspecified; G80.9 Cerebral palsy, unspecified; G40.909 Epilepsy, unspecified, not intractable, without status epilepticus; I27.20 Pulmonary hypertension, unspecified; N40.0 Benign prostatic hyperplasia without lower urinary tract symptoms; Z79.899 Other long term (current) drug therapy; Z79.82 Long term (current) use of aspirin
CPT/HCPCS: 36415; 36600; 71045; 80061; 82375; 82550; 82553; 82805; 83036; 83605; 83880; 84484; 87804; 93005; 93306; 93970; 94640; 94660; 96365; 96366; 97162; 97166; 99291; J1630; J1650; J1956; J2405; J2920; J2930; J3475; J7050; J7611; J7620

== ENCOUNTER 2019-02-17 12:51 | Inpatient (IN) | payer MEDICARE, MEDICAID ==
[~2019-02-17] VITALS: Ht 162.6 cm; Wt 51.7 kg
[2019-02-17] MEDS ORDERED: METHYLPREDNISOLONE SOD SUCC 125 MG/2 ML VIAL IV STA (12:55)
[2019-02-17] MEDS ORDERED: IPRATROPIUM/ALBUTEROL 0.5-3(2.5)MG/3ML NEB HHN ONE (13:00)
[2019-02-17] MEDS ORDERED: MAGNESIUM 2 G PREMIX 50 ML IV ONE (13:00)
[2019-02-17 13:05] LABS: HEMATOCRIT. 45.1 % (42.0-52.0); HEMOGLOBIN. 15.5 g/dL (14.0-18.0); MEAN CORPUSCULAR HEMOGLOBIN 32.7 pg (28.0-32.0); MEAN CORPUSCULAR VOLUME 94.8 fL (80.0-94.0); PLATELET 460 x1000/uL (130-400); RED BLOOD CELL COUNT 4.75 mill/uL (4.7-6.1); RED CELL DISTRIBUTION WIDTH 13.3 % (11.6-14.6)
[2019-02-17 13:11] LABS: CHLORIDE 105 mEq/L (98-107)
[2019-02-17 13:13] LABS: INR 1.1; PROTHROMBIN TIME 11.3 sec (9.6-11.0)
[2019-02-17 13:25] LABS: PLATELET ESTIMATE SLIGHTLY INCREASED
[2019-02-17] MEDS ORDERED: LEVOFLOXACIN 750MG PREMIX 150 ML IV ONE (14:45)
[2019-02-17] MEDS ORDERED: DOCUSATE SODIUM 100MG CAPSULE PO PRN (16:15)
[2019-02-17] MEDS ORDERED: NA PHOS,M-B/NA PHOS,DI-BA ENEMA 118ML PR PRN (16:15)
[2019-02-17] MEDS ORDERED: ONDANSETRON HCL 4MG/2ML INJ IV PRN (16:15)
[2019-02-17] MEDS ORDERED: CLONIDINE 0.1MG TABLET PO PRN (16:15)
[2019-02-17] MEDS ORDERED: IPRATROPIUM/ALBUTEROL 0.5-3(2.5)MG/3ML NEB INH PRN (16:15)
[2019-02-17] MEDS ORDERED: GUAIFENESIN 200MG/10ML SUGAR FREE UDC PO PRN (16:15)
[2019-02-17] MEDS ORDERED: ACETAMINOPHEN 325MG TABLET PO PRN (16:15)
[2019-02-17] MEDS ORDERED: HYDROMORPHONE HCL/PF 2MG/ML CPJ IV PRN (16:15)
[2019-02-17] MEDS ORDERED: HYDROCODONE/ACETAMINOPHEN 5/325MG TABLET PO PRN (16:15)
[2019-02-17 17:16] LABS: BG BASE EXCESS -1.7 mmol/L (-2.0-2.0); BG BILEVEL POS AIRWAY PRESSURE 15/5; BG CARBOXYHEMOGLOBIN 0.4 % (0.5-1.5); BG HCO3 ACT 23.2 mmol/L (22.0-26.0); BG METHEMOGLOBIN 0.2 % (0.0-1.5); BG OXYHEMOGLOBIN 97.4 % (94.0-97.0); BG PCO2 40.1 mmHg (35.0-45.0); BG PO2 122.1 mmHg (75.0-100.0); BG SAMPLE SITE LEFT RADIAL; BG TOTAL HEMOGLOBIN 14.5 g/dL (12.0-18.0); BG VENT MODE MASK - BIPAP; BG VENT RATE 16 set
[2019-02-17 20:02] VITALS: BP 161/91
[2019-02-17 20:16] VITALS: BP 161/91
[2019-02-17] MEDS: ENOXAPARIN 40MG/0.4ML SYR SUBCUT SCH (20:50)
[2019-02-17] MEDS: IPRATROPIUM/ALBUTEROL 0.5-3(2.5)MG/3ML NEB INH SCH (21:19)
[2019-02-17 22:04] VITALS: BP 147/75
[2019-02-18] VITALS (12 sets, daily range): BP systolic 96–144; BP diastolic 45–86
[2019-02-18] MEDS: METHYLPREDNISOLONE SOD SUCC 125 MG/2 ML VIAL IV SCH ×2 (01:09→05:42)
[2019-02-18 02:50] LABS: BG BASE EXCESS -4.7 mmol/L (-2.0-2.0); BG BILEVEL POS AIRWAY PRESSURE 15/5; BG CARBOXYHEMOGLOBIN 0.4 % (0.5-1.5); BG DEOXYHEMOGLOBIN 3.5 % (0.0-5.0); BG FRACTION INSPIRED OXYGEN 50; BG HCO3 ACT 21.2 mmol/L (22.0-26.0); BG METHEMOGLOBIN 0.3 % (0.0-1.5); BG OXYGEN SATURATION 96.5 % (92.0-98.5); BG OXYHEMOGLOBIN 95.8 % (94.0-97.0); BG PCO2 41.8 mmHg (35.0-45.0); BG PH 7.322 (7.350-7.450); BG PO2 95.9 mmHg (75.0-100.0); BG SAMPLE SITE LEFT RADIAL; BG TOTAL HEMOGLOBIN 14.6 g/dL (12.0-18.0)
[2019-02-18] MEDS: IPRATROPIUM/ALBUTEROL 0.5-3(2.5)MG/3ML NEB INH SCH ×3 (03:22→20:59)
[2019-02-18 08:22] LABS: CHLORIDE 108 mEq/L (98-107)
[2019-02-18 09:41] LABS: BG BASE EXCESS 0.1 mmol/L (-2.0-2.0); BG CARBOXYHEMOGLOBIN 0.3 % (0.5-1.5); BG DEOXYHEMOGLOBIN 3.1 % (0.0-5.0); BG FRACTION INSPIRED OXYGEN 36; BG HCO3 ACT 24.3 mmol/L (22.0-26.0); BG METHEMOGLOBIN 0.3 % (0.0-1.5); BG OXYGEN SATURATION 96.9 % (92.0-98.5); BG OXYHEMOGLOBIN 96.3 % (94.0-97.0); BG PCO2 38.1 mmHg (35.0-45.0); BG PH 7.423 (7.350-7.450); BG PO2 95.5 mmHg (75.0-100.0); BG SAMPLE SITE LEFT RADIAL; BG TOTAL HEMOGLOBIN 13.6 g/dL (12.0-18.0); BG VENT MODE NASAL CANNULA
[2019-02-18 09:42] LABS: BASOPHILS % 0.5 % (0.0-2.0); EOSINOPHILS % 0.4 % (0.0-5.0); HEMATOCRIT. 40.7 % (42.0-52.0); HEMOGLOBIN. 13.8 g/dL (14.0-18.0); LYMPHOCYTES % 22.4 % (20.0-50.0); MEAN CORPUSCULAR HEMOGLOBIN 32.1 pg (28.0-32.0); MEAN CORPUSCULAR VOLUME 94.7 fL (80.0-94.0); MEAN PLATELET VOLUME 7.2 fl (7.4-10.4); NEUTROPHILS % 74.7 % (40.0-76.0); PLATELET 373 x1000/uL (130-400); RED CELL DISTRIBUTION WIDTH 13.2 % (11.6-14.6)
[2019-02-18] MEDS: AMLODIPINE 10MG TABLET PO SCH (09:53)
[2019-02-18] MEDS: LORATADINE 10MG TABLET PO SCH (11:05)
[2019-02-18] MEDS: FAMOTIDINE 20MG/2ML VIAL IV SCH (11:05)
[2019-02-18] MEDS: FINASTERIDE 5MG TABLET PO SCH (11:42)
[2019-02-18] MEDS: METHYLPREDNISOLONE SOD SUCC 40 MG/ML VIAL IV SCH ×2 (14:16→21:08)
[2019-02-18] MEDS ORDERED: LEVOFLOXACIN 250MG PREMIX 50 ML IV SCH (16:00)
[2019-02-18] MEDS: MONTELUKAST SODIUM 10MG TABLET PO SCH (17:25)
[2019-02-18] MEDS ORDERED: METHYLPREDNISOLONE SOD SUCC 125 MG/2 ML VIAL IV SCH (19:00)
[2019-02-18] MEDS: ATORVASTATIN CALCIUM 20MG TABLET PO SCH (20:48)
[2019-02-18] MEDS: ENOXAPARIN 40MG/0.4ML SYR SUBCUT SCH (20:48)
[2019-02-18] MEDS: LEVETIRACETAM 500MG TABLET PO SCH (20:48)
[2019-02-19] VITALS (12 sets, daily range): BP systolic 93–117; BP diastolic 46–70
[2019-02-19] MEDS: IPRATROPIUM/ALBUTEROL 0.5-3(2.5)MG/3ML NEB INH SCH ×4 (00:17→21:25)
[2019-02-19] MEDS: METHYLPREDNISOLONE SOD SUCC 40 MG/ML VIAL IV SCH ×2 (05:37→16:30)
[2019-02-19] MEDS: LEVETIRACETAM 500MG TABLET PO SCH ×2 (08:26→20:08)
[2019-02-19] MEDS: LORATADINE 10MG TABLET PO SCH (08:26)
[2019-02-19] MEDS: FINASTERIDE 5MG TABLET PO SCH (08:26)
[2019-02-19] MEDS: FAMOTIDINE 20MG/2ML VIAL IV SCH (08:26)
[2019-02-19] MEDS: AMLODIPINE 10MG TABLET PO SCH (08:26)
[2019-02-19] MEDS ORDERED: FINASTERIDE 5MG TABLET PO SCH (09:00)
[2019-02-19] MEDS: MONTELUKAST SODIUM 10MG TABLET PO SCH (16:30)
[2019-02-19] MEDS: ENOXAPARIN 40MG/0.4ML SYR SUBCUT SCH (20:07)
[2019-02-19] MEDS: ATORVASTATIN CALCIUM 20MG TABLET PO SCH (20:08)
[2019-02-20] VITALS (8 sets, daily range): BP systolic 91–119; BP diastolic 48–79
[2019-02-20] MEDS: IPRATROPIUM/ALBUTEROL 0.5-3(2.5)MG/3ML NEB INH SCH ×2 (01:49→10:03)
[2019-02-20] MEDS: LORATADINE 10MG TABLET PO SCH (08:29)
[2019-02-20] MEDS: AMLODIPINE 10MG TABLET PO SCH (08:30)
[2019-02-20] MEDS: FINASTERIDE 5MG TABLET PO SCH (08:30)
[2019-02-20] MEDS: LEVETIRACETAM 500MG TABLET PO SCH (08:30)
[2019-02-20] MEDS: METHYLPREDNISOLONE SOD SUCC 40 MG/ML VIAL IV SCH (08:30)
[2019-02-20] MEDS: FAMOTIDINE 20MG/2ML VIAL IV SCH (08:30)
[2019-02-20] MEDS ORDERED: AMLO10TA4 PO (13:22)
[2019-02-21] MEDS ORDERED: PREDNISONE 20MG TABLET PO SCH (09:00)
== END 2019-02-20 14:32 | disposition home health service (06) | DRG 196 ==
LOC: ER 12:51 → EDBEDREQ 12:59 → 3WST 14:36 → EDBEDREQ 15:06 → EDBEDREQSVC 15:06 → EDBEDREQTM 15:06 → ENRESERV 15:32 → SUPCPDRO 16:01
PROVIDERS: ADMIT Hospitalist; ATTEND Hospitalist
PROC: 5A09357 Assistance with Respiratory Ventilation, Less than 24 Consecutive Hours, Continuous Positive Airway Pressure (ICD-10-PCS; principal; 2019-02-17)
PROC: 5A09357 Assistance with Respiratory Ventilation, Less than 24 Consecutive Hours, Continuous Positive Airway Pressure (ICD-10-PCS; 2019-02-18)
DX: J82 Pulmonary eosinophilia, not elsewhere classified (principal); J96.01 Acute respiratory failure with hypoxia; J44.1 Chronic obstructive pulmonary disease with (acute) exacerbation; I50.32 Chronic diastolic (congestive) heart failure; G80.9 Cerebral palsy, unspecified; I11.0 Hypertensive heart disease with heart failure; E78.5 Hyperlipidemia, unspecified; G40.909 Epilepsy, unspecified, not intractable, without status epilepticus; N40.0 Benign prostatic hyperplasia without lower urinary tract symptoms; Z79.82 Long term (current) use of aspirin
CPT/HCPCS: 36415; 36600; 71045; 82375; 82805; 83605; 83880; 84484; 93005; 93970; 96365; 96366; 96367; 96375; 99291; J1650; J1956; J2920; J2930; J3475; J3490; J7620

== ENCOUNTER 2019-03-31 13:48 | Inpatient (IN) | payer MEDICARE, MEDICAID ==
[~2019-03-31] VITALS: Ht 157.5 cm; Wt 50.3 kg
[~2019-03-31 13:48] MED LIST changes: +AMLO10TA4 PO
[2019-03-31] MEDS ORDERED: IPRATROPIUM/ALBUTEROL 0.5-3(2.5)MG/3ML NEB HHN ONE (14:00)
[2019-03-31 14:08] LABS: BG BASE EXCESS -2.7 mmol/L (-2.0-2.0); BG BILEVEL POS AIRWAY PRESSURE 15/5; BG CARBOXYHEMOGLOBIN 1.3 % (0.5-1.5); BG HCO3 ACT 24.2 mmol/L (22.0-26.0); BG METHEMOGLOBIN 0.2 % (0.0-1.5); BG OXYHEMOGLOBIN 95.5 % (94.0-97.0); BG PCO2 50.1 mmHg (35.0-45.0); BG PH 7.302 (7.350-7.450); BG PO2 97.8 mmHg (75.0-100.0); BG SAMPLE SITE LEFT RADIAL; BG TOTAL HEMOGLOBIN 14.6 g/dL (12.0-18.0); BG VENT MODE MASK - BIPAP; BG VENT RATE 16 set
[2019-03-31 14:18] LABS: HEMATOCRIT. 43.1 % (42.0-52.0); HEMOGLOBIN. 14.2 g/dL (14.0-18.0); MEAN CORPUSCULAR HEMOGLOBIN 31.2 pg (28.0-32.0); MEAN CORPUSCULAR VOLUME 94.5 fL (80.0-94.0); MEAN PLATELET VOLUME 7.3 fl (7.4-10.4); PLATELET 468 x1000/uL (130-400); RED BLOOD CELL COUNT 4.56 mill/uL (4.7-6.1); RED CELL DISTRIBUTION WIDTH 13.6 % (11.6-14.6)
[2019-03-31 14:22] LABS: CHLORIDE 101 mEq/L (98-107); INR 1.1; PROTHROMBIN TIME 11.3 sec (9.6-11.0)
[2019-03-31 15:13] LABS: PLATELET ESTIMATE INCREASED
[2019-03-31] MEDS ORDERED: LEVOFLOXACIN 750MG PREMIX 150 ML IV ONE (15:30)
[2019-03-31] MEDS ORDERED: IPRATROPIUM/ALBUTEROL 0.5-3(2.5)MG/3ML NEB HHN SCH (16:00)
[2019-03-31] MEDS ORDERED: IPRATROPIUM/ALBUTEROL 0.5-3(2.5)MG/3ML NEB HHN PRN (16:00)
[2019-03-31] MEDS ORDERED: ONDANSETRON HCL 4MG/2ML INJ IV PRN (16:45)
[2019-03-31] MEDS ORDERED: DOCUSATE SODIUM 100MG CAPSULE PO PRN (16:45)
[2019-03-31] MEDS ORDERED: IPRATROPIUM/ALBUTEROL 0.5-3(2.5)MG/3ML NEB INH PRN (16:45)
[2019-03-31] MEDS ORDERED: CLONIDINE 0.1MG TABLET PO PRN (16:45)
[2019-03-31] MEDS ORDERED: IPRATROPIUM/ALBUTEROL 0.5-3(2.5)MG/3ML NEB INH SCH (16:45)
[2019-03-31] MEDS ORDERED: ACETAMINOPHEN 325MG TABLET PO PRN (16:45)
[2019-03-31 22:00] VITALS: BP 129/67
[2019-03-31] MEDS ORDERED: SODIUM CHLORIDE 10% FOR INH 15ML VIAL NEB INH NR (23:00)
[2019-03-31] MEDS: MONTELUKAST SODIUM 10MG TABLET PO SCH (23:15)
[2019-03-31] MEDS: METHYLPREDNISOLONE SOD SUCC 40 MG/ML VIAL IV SCH (23:15)
[2019-03-31] MEDS: FAMOTIDINE 20MG/2ML VIAL IV SCH (23:15)
[2019-03-31] MEDS: ENOXAPARIN 40MG/0.4ML SYR SUBCUT SCH (23:16)
[2019-03-31] MEDS: FLUTICASONE PROPIONATE 50MCG/SPRAY BOTTLE BOTHNSTRLS SCH (23:16)
[2019-04-01] VITALS (12 sets, daily range): BP systolic 106–145; BP diastolic 55–83
[2019-04-01] MEDS: IPRATROPIUM/ALBUTEROL 0.5-3(2.5)MG/3ML NEB INH SCH ×4 (02:03→20:25)
[2019-04-01] MEDS: METHYLPREDNISOLONE SOD SUCC 40 MG/ML VIAL IV SCH ×2 (06:22→14:04)
[2019-04-01 06:32] LABS: CLARITY URINE CLOUDY (CLEAR); COLOR URINE YELLOW (YELLOW); KETONES URINE TRACE (NEGATIVE); LEUKOCYTE ESTERASE URINE NEGATIVE (NEGATIVE); NITRITE URINE NEGATIVE (NEGATIVE); OCCULT BLOOD URINE NEGATIVE (NEGATIVE); PROTEIN URINE 1+ (NEGATIVE); SPECIFIC GRAVITY URINE 1.019 (1.005-1.030); UROBILINOGEN URINE 0.2 E.U./dL (0.2-1.0)
[2019-04-01 06:44] LABS: BASOPHILS % 0.2 % (0.0-2.0); EOSINOPHILS % 0.4 % (0.0-5.0); HEMATOCRIT. 40.6 % (42.0-52.0); HEMOGLOBIN. 13.7 g/dL (14.0-18.0); MEAN CORPUSCULAR HEMOGLOBIN 31.4 pg (28.0-32.0); MEAN CORPUSCULAR VOLUME 93.2 fL (80.0-94.0); MEAN PLATELET VOLUME 7.8 fl (7.4-10.4); MONOCYTES % 2.1 % (2.0-8.0); NEUTROPHILS % 83.3 % (40.0-76.0); PLATELET 353 x1000/uL (130-400); RED BLOOD CELL COUNT 4.36 mill/uL (4.7-6.1)
[2019-04-01 07:32] LABS: CHLORIDE 103 mEq/L (98-107)
[2019-04-01] MEDS: FLUTICASONE PROPIONATE 50MCG/SPRAY BOTTLE BOTHNSTRLS SCH ×2 (08:54→21:31)
[2019-04-01] MEDS: LORATADINE 10MG TABLET PO SCH (08:54)
[2019-04-01] MEDS: FAMOTIDINE 20MG/2ML VIAL IV SCH ×2 (08:54→21:31)
[2019-04-01 09:05] LABS: BG BASE EXCESS 2.5 mmol/L (-2.0-2.0); BG DEOXYHEMOGLOBIN 6.1 % (0.0-5.0); BG FRACTION INSPIRED OXYGEN 28; BG HCO3 ACT 26.4 mmol/L (22.0-26.0); BG OXYGEN SATURATION 93.9 % (92.0-98.5); BG OXYHEMOGLOBIN 93.9 % (94.0-97.0); BG PCO2 38.6 mmHg (35.0-45.0); BG PH 7.453 (7.350-7.450); BG SAMPLE SITE LEFT RADIAL; BG TOTAL HEMOGLOBIN 13.2 g/dL (12.0-18.0); BG VENT MODE NASAL CANNULA
[2019-04-01] MEDS: GUAIFENESIN 200MG/10ML SUGAR FREE UDC PO PRN ×2 (13:51→21:34)
[2019-04-01] MEDS ORDERED: LEVOFLOXACIN 500MG PREMIX 100 ML IV SCH (14:00)
[2019-04-01] MEDS ORDERED: METHYLPREDNISOLONE SOD SUCC 40 MG/ML VIAL IV SCH (17:00)
[2019-04-01] MEDS: MONTELUKAST SODIUM 10MG TABLET PO SCH (17:05)
[2019-04-01] MEDS: LEVETIRACETAM 500MG TABLET PO SCH (21:31)
[2019-04-01] MEDS: ENOXAPARIN 40MG/0.4ML SYR SUBCUT SCH (21:32)
[2019-04-02] VITALS (12 sets, daily range): BP systolic 89–134; BP diastolic 51–74
[2019-04-02] MEDS: IPRATROPIUM/ALBUTEROL 0.5-3(2.5)MG/3ML NEB INH SCH ×4 (02:26→20:45)
[2019-04-02] MEDS: LEVETIRACETAM 500MG TABLET PO SCH ×2 (09:07→20:38)
[2019-04-02] MEDS: FLUTICASONE PROPIONATE 50MCG/SPRAY BOTTLE BOTHNSTRLS SCH ×2 (09:07→20:39)
[2019-04-02] MEDS: FAMOTIDINE 20MG/2ML VIAL IV SCH (09:07)
[2019-04-02] MEDS: LORATADINE 10MG TABLET PO SCH (09:07)
[2019-04-02] MEDS ORDERED: LEVOFLOXACIN 500MG PREMIX 100 ML IV SCH (14:00)
[2019-04-02] MEDS: MONTELUKAST SODIUM 10MG TABLET PO SCH (17:22)
[2019-04-02 17:45] LABS: BASOPHILS % 0.4 % (0.0-2.0); EOSINOPHILS % 0.4 % (0.0-5.0); HEMATOCRIT. 36.7 % (42.0-52.0); HEMOGLOBIN. 12.6 g/dL (14.0-18.0); LYMPHOCYTES % 25.2 % (20.0-50.0); MEAN CORPUSCULAR VOLUME 93.3 fL (80.0-94.0); MEAN PLATELET VOLUME 7.5 fl (7.4-10.4); MONOCYTES % 9.4 % (2.0-8.0); NEUTROPHILS % 64.6 % (40.0-76.0); PLATELET 310 x1000/uL (130-400); RED BLOOD CELL COUNT 3.93 mill/uL (4.7-6.1); RED CELL DISTRIBUTION WIDTH 13.2 % (11.6-14.6)
[2019-04-02 17:55] LABS: CHLORIDE 107 mEq/L (98-107)
[2019-04-02] MEDS: ENOXAPARIN 40MG/0.4ML SYR SUBCUT SCH (20:38)
[2019-04-02] MEDS: METHYLPREDNISOLONE SOD SUCC 40 MG/ML VIAL IV SCH (21:14)
[2019-04-03] VITALS (9 sets, daily range): BP systolic 90–122; BP diastolic 47–86
[2019-04-03] MEDS: IPRATROPIUM/ALBUTEROL 0.5-3(2.5)MG/3ML NEB INH SCH ×4 (00:20→14:36)
[2019-04-03] MEDS: GUAIFENESIN 200MG/10ML SUGAR FREE UDC PO PRN (06:57)
[2019-04-03] MEDS ORDERED: FAMOTIDINE 20MG/2ML VIAL IV SCH (09:00)
[2019-04-03] MEDS: METHYLPREDNISOLONE SOD SUCC 40 MG/ML VIAL IV SCH ×2 (10:23→16:40)
[2019-04-03] MEDS: LEVETIRACETAM 500MG TABLET PO SCH (10:23)
[2019-04-03] MEDS: LORATADINE 10MG TABLET PO SCH (10:23)
[2019-04-03] MEDS: FLUTICASONE PROPIONATE 50MCG/SPRAY BOTTLE BOTHNSTRLS SCH (10:25)
[2019-04-03] MEDS: MONTELUKAST SODIUM 10MG TABLET PO SCH (16:40)
[2019-04-03] MEDS ORDERED: LEVOFLOXACIN 250MG TABLET PO SCH (21:00)
[2019-04-03] MEDS ORDERED: LEVOFLOXACIN 750MG PREMIX 150 ML IV SCH (21:00)
[2019-04-04] MEDS ORDERED: FAMOTIDINE 20MG TABLET PO SCH (09:00)
== END 2019-04-03 17:34 | disposition home health service (06) | DRG 871 ==
LOC: ER 13:48 → 5EST 15:49 → EDBEDREQ 15:55 → ENRESERV 20:16 → 5EST 21:51
PROVIDERS: ADMIT Hospitalist; ATTEND Hospitalist
PROC: 5A09357 Assistance with Respiratory Ventilation, Less than 24 Consecutive Hours, Continuous Positive Airway Pressure (ICD-10-PCS; principal; 2019-03-31)
PROC: 5A09357 Assistance with Respiratory Ventilation, Less than 24 Consecutive Hours, Continuous Positive Airway Pressure (ICD-10-PCS; 2019-04-03)
DX: A41.9 Sepsis, unspecified organism (principal); J96.01 Acute respiratory failure with hypoxia; J18.9 Pneumonia, unspecified organism; J96.02 Acute respiratory failure with hypercapnia; I50.32 Chronic diastolic (congestive) heart failure; J44.1 Chronic obstructive pulmonary disease with (acute) exacerbation; E87.2 Acidosis; J44.0 Chronic obstructive pulmonary disease with (acute) lower respiratory infection; G40.909 Epilepsy, unspecified, not intractable, without status epilepticus; G80.9 Cerebral palsy, unspecified; N40.0 Benign prostatic hyperplasia without lower urinary tract symptoms; I11.0 Hypertensive heart disease with heart failure; J20.9 Acute bronchitis, unspecified; R73.9 Hyperglycemia, unspecified; Z79.899 Other long term (current) drug therapy; Z79.82 Long term (current) use of aspirin
CPT/HCPCS: 36415; 36600; 71045; 82375; 82805; 83605; 83880; 84484; 93005; 93970; 94640; 94660; 96374; 97116; 97162; 97530; 99291; J1650; J1956; J2920; J3490; J7050; J7131; J7620

== ENCOUNTER 2019-07-26 23:54 | Inpatient (IN) | payer MEDICARE, MEDICAID ==
[~2019-07-26] VITALS: Ht 160 cm; Wt 47.8 kg
[2019-07-27] VITALS (8 sets, daily range): BP systolic 92–141; BP diastolic 53–77
[2019-07-27] MEDS ORDERED: METHYLPREDNISOLONE SOD SUCC 125 MG/2 ML VIAL IV STA (00:06)
[2019-07-27] MEDS ORDERED: ALBUTEROL (0.083%) 2.5MG/3ML NEB HHN STA (00:06)
[2019-07-27] MEDS ORDERED: IPRATROPIUM BROMIDE (0.02%) 0.5MG/2.5ML NEB HHN STA (00:06)
[2019-07-27 00:36] LABS: BASOPHILS % 0.3 % (0.0-2.0); HEMATOCRIT. 38.7 % (42.0-52.0); HEMOGLOBIN. 13.3 g/dL (14.0-18.0); LYMPHOCYTES % 11.7 % (20.0-50.0); MEAN CORPUSCULAR HEMOGLOBIN 31.7 pg (28.0-32.0); MEAN CORPUSCULAR VOLUME 92.1 fL (80.0-94.0); MEAN PLATELET VOLUME 7.8 fl (7.4-10.4); MONOCYTES % 5.2 % (2.0-8.0); NEUTROPHILS % 82.8 % (40.0-76.0); PLATELET 253 x1000/uL (130-400); RED BLOOD CELL COUNT 4.21 mill/uL (4.7-6.1); RED CELL DISTRIBUTION WIDTH 13.3 % (11.6-14.6)
[2019-07-27 00:43] LABS: CHLORIDE 108 mEq/L (98-107)
[2019-07-27] MEDS ORDERED: ONDANSETRON HCL 4MG/2ML INJ IV PRN (06:00)
[2019-07-27] MEDS ORDERED: NA PHOS,M-B/NA PHOS,DI-BA ENEMA 118ML PR PRN (06:00)
[2019-07-27] MEDS ORDERED: IPRATROPIUM/ALBUTEROL 0.5-3(2.5)MG/3ML NEB NEB PRN (06:00)
[2019-07-27] MEDS ORDERED: ACETAMINOPHEN 325MG TABLET PO PRN (06:00)
[2019-07-27] MEDS ORDERED: CLONIDINE 0.1MG TABLET PO PRN (06:00)
[2019-07-27] MEDS ORDERED: MORPHINE SULFATE 4 MG/ML CPJ (NOT FOR IM USE) IV PRN (06:00)
[2019-07-27] MEDS ORDERED: GUAIFENESIN 200MG/10ML SUGAR FREE UDC PO PRN (06:00)
[2019-07-27] MEDS ORDERED: DOCUSATE SODIUM 100MG CAPSULE PO PRN (06:00)
[2019-07-27] MEDS: AMLODIPINE 10MG TABLET PO SCH (09:07)
[2019-07-27] MEDS: ASPIRIN 81MG EC TABLET PO SCH (09:07)
[2019-07-27] MEDS: METHYLPREDNISOLONE SOD SUCC 125 MG/2 ML VIAL IV SCH ×2 (09:07→15:00)
[2019-07-27] MEDS: ENOXAPARIN 40MG/0.4ML SYR SUBCUT SCH (09:08)
[2019-07-27] MEDS: IPRATROPIUM/ALBUTEROL 0.5-3(2.5)MG/3ML NEB NEB SCH ×2 (09:58→11:25)
[2019-07-27] MEDS ORDERED: LEVOFLOXACIN 500MG PREMIX 100 ML IV SCH (10:00)
[2019-07-27] MEDS: FINASTERIDE 5MG TABLET PO SCH (11:30)
[2019-07-27] MEDS ORDERED: GUAIFENESIN-DM 200MG-20MG/10ML UDC PO PRN (13:45)
[2019-07-27] MEDS ORDERED: LORAZEPAM 2MG/ML CPJ IV PRN (13:45)
[2019-07-27 14:09] LABS: BG BASE EXCESS -1.3 mmol/L (-2.0-2.0); BG BILEVEL POS AIRWAY PRESSURE ST=15/5; BG CARBOXYHEMOGLOBIN 0.3 % (0.5-1.5); BG DEOXYHEMOGLOBIN 6.9 % (0.0-5.0); BG FRACTION INSPIRED OXYGEN 50; BG HCO3 ACT 23.2 mmol/L (22.0-26.0); BG METHEMOGLOBIN 0.1 % (0.0-1.5); BG OXYGEN SATURATION 93.1 % (92.0-98.5); BG OXYHEMOGLOBIN 92.7 % (94.0-97.0); BG PCO2 38.3 mmHg (35.0-45.0); BG PO2 68.9 mmHg (75.0-100.0); BG PRESSURE SUPPORT 10; BG SAMPLE SITE LEFT BRACHIAL; BG TOTAL HEMOGLOBIN 14.1 g/dL (12.0-18.0); BG VENT MODE MASK - BIPAP; BG VENT RATE 16 set
[2019-07-27] MEDS: FLUTICASONE PROPIONATE 50MCG/SPRAY BOTTLE BOTHNSTRLS SCH ×2 (15:00→20:53)
[2019-07-27] MEDS: DIPHENHYDRAMINE 50MG/ML VIAL IV PRN (15:28)
[2019-07-27] MEDS: IPRATROPIUM/ALBUTEROL 0.5-3(2.5)MG/3ML NEB HHN SCH ×2 (16:37→20:42)
[2019-07-27] MEDS: MONTELUKAST SODIUM 10MG TABLET PO SCH (17:10)
[2019-07-27] MEDS: ATORVASTATIN CALCIUM 20MG TABLET PO SCH (20:52)
[2019-07-28] VITALS (17 sets, daily range): BP systolic 78–143; BP diastolic 44–73
[2019-07-28] MEDS: IPRATROPIUM/ALBUTEROL 0.5-3(2.5)MG/3ML NEB HHN SCH ×6 (00:48→19:53)
[2019-07-28] MEDS: DIPHENHYDRAMINE 50MG/ML VIAL IV PRN ×2 (01:05→13:23)
[2019-07-28 05:46] LABS: BASOPHILS % 0.9 % (0.0-2.0); EOSINOPHILS % 0.2 % (0.0-5.0); HEMOGLOBIN. 13.4 g/dL (14.0-18.0); LYMPHOCYTES % 15.3 % (20.0-50.0); MEAN CORPUSCULAR HEMOGLOBIN 31.1 pg (28.0-32.0); MEAN CORPUSCULAR VOLUME 93.1 fL (80.0-94.0); MEAN PLATELET VOLUME 9.9 fl (7.4-10.4); MONOCYTES % 4.8 % (2.0-8.0); NEUTROPHILS % 78.8 % (40.0-76.0); PLATELET 168 x1000/uL (130-400); RED BLOOD CELL COUNT 4.29 mill/uL (4.7-6.1); RED CELL DISTRIBUTION WIDTH 13.2 % (11.6-14.6)
[2019-07-28 05:53] LABS: CHLORIDE 110 mEq/L (98-107)
[2019-07-28] MEDS: AMLODIPINE 10MG TABLET PO SCH (09:00)
[2019-07-28] MEDS: FINASTERIDE 5MG TABLET PO SCH (09:00)
[2019-07-28] MEDS: ENOXAPARIN 40MG/0.4ML SYR SUBCUT SCH (09:04)
[2019-07-28] MEDS: ASPIRIN 81MG EC TABLET PO SCH (09:04)
[2019-07-28] MEDS: FLUTICASONE PROPIONATE 50MCG/SPRAY BOTTLE BOTHNSTRLS SCH ×2 (09:05→21:02)
[2019-07-28] MEDS: LEVOFLOXACIN 250MG PREMIX 50 ML IV SCH (10:00)
[2019-07-28] MEDS ORDERED: MORPHINE SULFATE 2 MG/ML CPJ (NOT FOR IM USE) IV PRN (10:36)
[2019-07-28 10:59] LABS: BG BASE EXCESS -2.2 mmol/L (-2.0-2.0); BG CARBOXYHEMOGLOBIN 0.3 % (0.5-1.5); BG DEOXYHEMOGLOBIN 6.2 % (0.0-5.0); BG FRACTION INSPIRED OXYGEN 28; BG HCO3 ACT 20.8 mmol/L (22.0-26.0); BG METHEMOGLOBIN 0.5 % (0.0-1.5); BG OXYGEN SATURATION 93.8 % (92.0-98.5); BG PCO2 30.5 mmHg (35.0-45.0); BG PH 7.452 (7.350-7.450); BG PO2 69.1 mmHg (75.0-100.0); BG SAMPLE SITE LEFT BRACHIAL; BG TOTAL HEMOGLOBIN 12.3 g/dL (12.0-18.0); BG VENT MODE NASAL CANNULA
[2019-07-28] MEDS ORDERED: METHYLPREDNISOLONE SOD SUCC 125 MG/2 ML VIAL IV SCH (14:00)
[2019-07-28] MEDS ORDERED: DIPHENHYDRAMINE 50MG/ML VIAL IV NR (17:15)
[2019-07-28] MEDS: MONTELUKAST SODIUM 10MG TABLET PO SCH (17:41)
[2019-07-28 17:49] LABS: CLARITY URINE CLOUDY (CLEAR); COLOR URINE YELLOW (YELLOW); KETONES URINE NEGATIVE (NEGATIVE); LEUKOCYTE ESTERASE URINE NEGATIVE (NEGATIVE); NITRITE URINE NEGATIVE (NEGATIVE); OCCULT BLOOD URINE NEGATIVE (NEGATIVE); PROTEIN URINE TRACE (NEGATIVE); SPECIFIC GRAVITY URINE 1.022 (1.005-1.030)
[2019-07-28 18:20] LABS: *AMPHETAMINES SCREEN URINE NEGATIVE (NEGATIVE); *BARBITURATES SCREEN URINE NEGATIVE (NEGATIVE); *BENZODIAZEPINES SCREEN URINE NEGATIVE (NEGATIVE); *COCAINE SCREEN URINE NEGATIVE (NEGATIVE)
[2019-07-28 18:21] LABS: CANNABINOID URINE SCREEN NEGATIVE (NEGATIVE); METHADONE URINE SCREEN NEGATIVE (NEGATIVE); OPIATES URINE SCREEN PRESUMTIVE POSITIVE (NEGATIVE); PHENCYCLIDINE URINE SCREEN NEGATIVE (NEGATIVE)
[2019-07-28] MEDS: ATORVASTATIN CALCIUM 20MG TABLET PO SCH (20:58)
[2019-07-29] VITALS (12 sets, daily range): BP systolic 94–122; BP diastolic 47–69
[2019-07-29] MEDS: IPRATROPIUM/ALBUTEROL 0.5-3(2.5)MG/3ML NEB HHN SCH ×6 (00:11→20:55)
[2019-07-29] MEDS: DIPHENHYDRAMINE HCL/ZINC ACET 28 GM CREAM TOP PRN ×2 (01:23→09:07)
[2019-07-29] MEDS: AMLODIPINE 10MG TABLET PO SCH (09:00)
[2019-07-29] MEDS: ASPIRIN 81MG EC TABLET PO SCH (09:07)
[2019-07-29] MEDS: ENOXAPARIN 30MG/0.3ML SYR SUBCUT SCH (09:07)
[2019-07-29] MEDS: FINASTERIDE 5MG TABLET PO SCH (09:07)
[2019-07-29] MEDS: LEVOFLOXACIN 250MG PREMIX 50 ML IV SCH (09:08)
[2019-07-29] MEDS: FLUTICASONE PROPIONATE 50MCG/SPRAY BOTTLE BOTHNSTRLS SCH ×2 (09:08→20:22)
[2019-07-29] MEDS ORDERED: DIPHENHYDRAMINE 25MG CAPSULE PO PRN (15:00)
[2019-07-29] MEDS: MONTELUKAST SODIUM 10MG TABLET PO SCH (18:05)
[2019-07-29] MEDS: ATORVASTATIN CALCIUM 20MG TABLET PO SCH (20:22)
[2019-07-29] MEDS: BUDESONIDE 0.5MG/2ML NEB HHN SCH (20:55)
[2019-07-30] VITALS (7 sets, daily range): BP systolic 90–131; BP diastolic 53–67
[2019-07-30] MEDS: IPRATROPIUM/ALBUTEROL 0.5-3(2.5)MG/3ML NEB HHN SCH ×4 (00:55→13:40)
[2019-07-30] MEDS: BUDESONIDE 0.5MG/2ML NEB HHN SCH (09:32)
[2019-07-30] MEDS: ENOXAPARIN 30MG/0.3ML SYR SUBCUT SCH (09:52)
[2019-07-30] MEDS: LEVOFLOXACIN 250MG PREMIX 50 ML IV SCH (09:52)
[2019-07-30] MEDS: AMLODIPINE 10MG TABLET PO SCH (09:54)
[2019-07-30] MEDS: FLUTICASONE PROPIONATE 50MCG/SPRAY BOTTLE BOTHNSTRLS SCH (09:55)
[2019-07-30] MEDS: FINASTERIDE 5MG TABLET PO SCH (09:55)
[2019-07-30] MEDS: ASPIRIN 81MG EC TABLET PO SCH (10:11)
[2019-07-31] MEDS ORDERED: LEVOFLOXACIN 250MG TABLET PO SCH (09:00)
== END 2019-07-30 16:35 | disposition home health service (06) | DRG 189 ==
LOC: ER 23:54 → 3WST 07-27 02:21 → EDBEDREQSVC 07-27 02:24 → EDBEDREQ 07-27 02:24 → EDBEDREQTM 07-27 02:24 → ENRESERV 07-27 07:02 → 3WST 07-27 16:29
PROVIDERS: ADMIT Hospitalist; ATTEND Hospitalist
PROC: 5A09357 Assistance with Respiratory Ventilation, Less than 24 Consecutive Hours, Continuous Positive Airway Pressure (ICD-10-PCS; principal; 2019-07-27)
PROC: 5A09357 Assistance with Respiratory Ventilation, Less than 24 Consecutive Hours, Continuous Positive Airway Pressure (ICD-10-PCS; 2019-07-28)
DX: J96.00 Acute respiratory failure, unspecified whether with hypoxia or hypercapnia (principal); J44.1 Chronic obstructive pulmonary disease with (acute) exacerbation; I50.32 Chronic diastolic (congestive) heart failure; J44.0 Chronic obstructive pulmonary disease with (acute) lower respiratory infection; G40.909 Epilepsy, unspecified, not intractable, without status epilepticus; G80.9 Cerebral palsy, unspecified; I11.0 Hypertensive heart disease with heart failure; Z99.81 Dependence on supplemental oxygen; N40.0 Benign prostatic hyperplasia without lower urinary tract symptoms; J20.9 Acute bronchitis, unspecified; J31.0 Chronic rhinitis; Z88.8 Allergy status to other drugs, medicaments and biological substances
CPT/HCPCS: 36415; 36600; 71045; 80305; 81003; 82375; 82805; 83880; 84484; 93005; 93970; 94640; 94660; 99285; J1200; J1650; J1956; J2930; J7611; J7620; J7626; A4315

== ENCOUNTER 2020-01-02 01:28 | Emergency (ER) | payer MEDICARE, MEDICAID ==
[~2020-01-02] VITALS: Ht 167.6 cm; Wt 63.0 kg
[~2020-01-02 01:28] MED LIST changes: -MONT10TA24 PO; +MONT10TA26 PO
[2020-01-02] MEDS ORDERED: ACETAMINOPHEN 325MG TABLET PO ONE (02:30)
[2020-01-02] MEDS ORDERED: ALBUTEROL (0.083%) 2.5MG/3ML NEB HHN ONE (04:30)
[2020-01-02 05:29] VITALS: BP 115/77
== END 2020-01-02 05:35 | disposition home or self-care (01) ==
LOC: ER 01:28
DX: S92.501A Displaced unspecified fracture of right lesser toe(s), initial encounter for closed fracture (principal); W01.0XXA Fall on same level from slipping, tripping and stumbling without subsequent striking against object, initial encounter; Y93.89 Activity, other specified; Y92.89 Other specified places as the place of occurrence of the external cause; J44.9 Chronic obstructive pulmonary disease, unspecified; I11.0 Hypertensive heart disease with heart failure; I50.9 Heart failure, unspecified; R56.9 Unspecified convulsions; G80.9 Cerebral palsy, unspecified; Z79.82 Long term (current) use of aspirin
CPT/HCPCS: 73630; 94640; 99285

== ENCOUNTER 2020-09-09 20:46 | Emergency (ER) | payer MEDICARE, MEDICAID ==
[~2020-09-09] VITALS: Ht 172.7 cm; Wt 59.0 kg
[2020-09-09 23:13] LABS: CLARITY URINE CLEAR (CLEAR); COLOR URINE YELLOW (YELLOW); KETONES URINE NEGATIVE (NEGATIVE); LEUKOCYTE ESTERASE URINE NEGATIVE (NEGATIVE); NITRITE URINE NEGATIVE (NEGATIVE); OCCULT BLOOD URINE NEGATIVE (NEGATIVE); PROTEIN URINE NEGATIVE (NEGATIVE); SPECIFIC GRAVITY URINE 1.011 (1.005-1.030); UROBILINOGEN URINE 0.2 E.U./dL (0.2-1.0)
[2020-09-10 00:30] VITALS: BP 119/71
== END 2020-09-10 02:45 | disposition home or self-care (01) ==
LOC: ER 20:46
DX: R33.9 Retention of urine, unspecified (principal); N40.0 Benign prostatic hyperplasia without lower urinary tract symptoms; J44.9 Chronic obstructive pulmonary disease, unspecified; G80.9 Cerebral palsy, unspecified; I69.398 Other sequelae of cerebral infarction; Z79.82 Long term (current) use of aspirin
CPT/HCPCS: 81003; 93005; 99284

== ENCOUNTER 2021-02-07 15:10 | Inpatient (IN) | payer MEDICARE, MEDICAID ==
[~2021-02-07] VITALS: Ht 165.1 cm; Wt 49.9 kg
[~2021-02-07 15:10] MED LIST changes: -ASPI-1158 PO; +ASPI-1406 PO; -MONT10TA26 PO; +MONT10TA32 PO
[2021-02-07] MEDS ORDERED: METHYLPREDNISOLONE SOD SUCC 125 MG/2 ML VIAL IV STA (15:34)
[2021-02-07] MEDS ORDERED: ALBUTEROL (0.083%) 2.5MG/3ML NEB HHN STA (15:34)
[2021-02-07] MEDS ORDERED: IPRATROPIUM BROMIDE (0.02%) 0.5MG/2.5ML NEB HHN STA (15:34)
[2021-02-07] MEDS ORDERED: LEVOFLOXACIN 500MG PREMIX 100 ML IV ONE (16:00)
[2021-02-07 16:02] LABS: BG BASE EXCESS -1.1 mmol/L (-2.0-2.0); BG CARBOXYHEMOGLOBIN 0.2 % (0.5-1.5); BG FRACTION INSPIRED OXYGEN 44; BG HCO3 ACT 23.7 mmol/L (22.0-26.0); BG METHEMOGLOBIN 0.3 % (0.0-1.5); BG OXYHEMOGLOBIN 93.5 % (94.0-97.0); BG PCO2 40.2 mmHg (35.0-45.0); BG PH 7.389 (7.350-7.450); BG PO2 72.1 mmHg (75.0-100.0); BG SAMPLE SITE LEFT RADIAL; BG TOTAL HEMOGLOBIN 14.1 g/dL (12.0-18.0); BG VENT MODE NASAL CANNULA
[2021-02-07 16:20] LABS: BASOPHILS % 0.5 % (0.0-2.0); EOSINOPHILS % 3.6 % (0.0-5.0); HEMATOCRIT. 44.1 % (42.0-52.0); HEMOGLOBIN. 14.4 g/dL (14.0-18.0); LYMPHOCYTES % 12.4 % (20.0-50.0); MEAN CORPUSCULAR HEMOGLOBIN 29.6 pg (28.0-32.0); MEAN CORPUSCULAR VOLUME 90.7 fL (80.0-94.0); MEAN PLATELET VOLUME 7.2 fl (7.4-10.4); MONOCYTES % 6.4 % (2.0-8.0); NEUTROPHILS % 77.1 % (40.0-76.0); PLATELET 280 x1000/uL (130-400); RED BLOOD CELL COUNT 4.86 mill/uL (4.7-6.1); RED CELL DISTRIBUTION WIDTH 14.7 % (11.6-14.6)
[2021-02-07 16:28] LABS: CHLORIDE 105 mEq/L (98-107)
[2021-02-07] MEDS ORDERED: LORA10TA7 PO (21:54)
[2021-02-07] MEDS ORDERED: FURO20TA4 PO (21:54)
[2021-02-07 22:00] VITALS: BP 120/71
[2021-02-07] MEDS ORDERED: ALBUTEROL 6.7GM HFA INHALER ORI PRN (23:45)
[2021-02-08] VITALS: BP 132/65
[2021-02-08] MEDS: METHYLPREDNISOLONE SOD SUCC 40 MG/ML VIAL IV SCH ×3 (02:10→18:07)
[2021-02-08 04:00] VITALS: BP 115/62
[2021-02-08] MEDS: ALBUTEROL 6.7GM HFA INHALER ORI SCH ×5 (04:54→19:40)
[2021-02-08 08:00] VITALS: BP 138/74
[2021-02-08] MEDS: LORATADINE 10MG TABLET PO SCH (09:54)
[2021-02-08] MEDS: FAMOTIDINE 20MG TABLET PO SCH (09:54)
[2021-02-08] MEDS: ENOXAPARIN 40MG/0.4ML SYR SUBCUT SCH (09:54)
[2021-02-08] MEDS: BUDESONIDE 0.5MG/2ML NEB HHN SCH (11:58)
[2021-02-08 12:00] VITALS: BP 128/79
[2021-02-08 16:00] VITALS: BP 130/86
[2021-02-08] MEDS ORDERED: GUAIFENESIN-DM 200MG-20MG/10ML UDC PO PRN (16:15)
[2021-02-08] MEDS: LEVOFLOXACIN 500MG PREMIX 100 ML IV SCH (18:08)
[2021-02-08] MEDS ORDERED: POTASSIUM CHLORIDE 20MEQ TABLET SR PO NR (19:00)
[2021-02-08 20:34] VITALS: BP 132/80
[2021-02-08] MEDS: FINASTERIDE 5MG TABLET PO SCH (21:51)
[2021-02-08] MEDS: ATORVASTATIN CALCIUM 20MG TABLET PO SCH (21:52)
[2021-02-09] VITALS (7 sets, daily range): BP systolic 106–140; BP diastolic 58–76
[2021-02-09] MEDS: ALBUTEROL 6.7GM HFA INHALER ORI SCH
[2021-02-09] MEDS: METHYLPREDNISOLONE SOD SUCC 40 MG/ML VIAL IV SCH ×3 (02:14→17:20)
[2021-02-09] MEDS: FAMOTIDINE 20MG TABLET PO SCH (08:00)
[2021-02-09] MEDS: LORATADINE 10MG TABLET PO SCH (08:00)
[2021-02-09] MEDS: ENOXAPARIN 40MG/0.4ML SYR SUBCUT SCH (08:01)
[2021-02-09] MEDS ORDERED: IPRATROPIUM/ALBUTEROL 0.5-3(2.5)MG/3ML NEB HHN PRN (11:30)
[2021-02-09 11:53] LABS: CLARITY URINE CLEAR (CLEAR); COLOR URINE YELLOW (YELLOW); KETONES URINE NEGATIVE (NEGATIVE); LEUKOCYTE ESTERASE URINE NEGATIVE (NEGATIVE); NITRITE URINE NEGATIVE (NEGATIVE); OCCULT BLOOD URINE NEGATIVE (NEGATIVE); PH URINE 6.5 (4.5-8.0); PROTEIN URINE NEGATIVE (NEGATIVE); SPECIFIC GRAVITY URINE 1.021 (1.005-1.030); UROBILINOGEN URINE 0.2 E.U./dL (0.2-1.0)
[2021-02-09] MEDS: IPRATROPIUM/ALBUTEROL 0.5-3(2.5)MG/3ML NEB HHN SCH ×4 (11:58→23:59)
[2021-02-09] MEDS: LEVOFLOXACIN 500MG PREMIX 100 ML IV SCH (17:20)
[2021-02-09] MEDS ORDERED: P20 MT (17:41)
[2021-02-09] MEDS: BUDESONIDE 0.5MG/2ML NEB HHN SCH (20:08)
[2021-02-09] MEDS: FINASTERIDE 5MG TABLET PO SCH (20:55)
[2021-02-09] MEDS: ATORVASTATIN CALCIUM 20MG TABLET PO SCH (20:55)
[2021-02-10 00:01] VITALS: BP 97/52
[2021-02-10 04:00] VITALS: BP 129/72
[2021-02-10] MEDS: IPRATROPIUM/ALBUTEROL 0.5-3(2.5)MG/3ML NEB HHN SCH ×3 (04:21→12:08)
[2021-02-10 08:00] VITALS: BP 117/69
[2021-02-10] MEDS: BUDESONIDE 0.5MG/2ML NEB HHN SCH (08:34)
[2021-02-10] MEDS ORDERED: METHYLPREDNISOLONE SOD SUCC 40 MG/ML VIAL IV SCH (09:00)
[2021-02-10] MEDS: FAMOTIDINE 20MG TABLET PO SCH (09:31)
[2021-02-10] MEDS: LORATADINE 10MG TABLET PO SCH (09:31)
[2021-02-10] MEDS: ENOXAPARIN 40MG/0.4ML SYR SUBCUT SCH (09:32)
[2021-02-10 12:15] VITALS: BP 105/53
[2021-02-10 14:38] VITALS: BP 127/69
== END 2021-02-10 14:55 | disposition home or self-care (01) | DRG 190 ==
LOC: ER 15:10 → 7WST 18:45 → EDBEDREQ 18:53 → EDBEDREQTM 18:53 → ENRESERV 20:25 → 6WST 02-09 08:59
PROVIDERS: ADMIT Internal Medicine; ATTEND Internal Medicine
DX: J44.1 Chronic obstructive pulmonary disease with (acute) exacerbation (principal); R65.11 Systemic inflammatory response syndrome (SIRS) of non-infectious origin with acute organ dysfunction; J96.01 Acute respiratory failure with hypoxia; I50.32 Chronic diastolic (congestive) heart failure; J84.9 Interstitial pulmonary disease, unspecified; E87.6 Hypokalemia; F17.200 Nicotine dependence, unspecified, uncomplicated; G40.909 Epilepsy, unspecified, not intractable, without status epilepticus; D72.829 Elevated white blood cell count, unspecified; G80.9 Cerebral palsy, unspecified; N40.0 Benign prostatic hyperplasia without lower urinary tract symptoms; Z20.822 Contact with and (suspected) exposure to COVID-19; Z86.73 Personal history of transient ischemic attack (TIA), and cerebral infarction without residual deficits; Z79.899 Other long term (current) drug therapy
CPT/HCPCS: 36415; 36600; 71045; 80053; 81003; 82375; 82805; 83880; 84484; 85025; 93005; 94640; 94644; 97110; 97162; 97166; 99291; C1893; J1650; J1956; J2920; J2930; J7626; U0003

== ENCOUNTER 2021-06-28 08:08 | Inpatient (IN) | payer MEDICARE, MEDICAID ==
[~2021-06-28] VITALS: Ht 170.2 cm; Wt 49.0 kg
[~2021-06-28 08:08] MED LIST changes: -ALBU18HF2 IH; +FURO20TA4 PO; +LORA10TA7 PO; -MONT10TA32 PO; -OMEP-265 PO; +P20 MT
[2021-06-28 09:01] LABS: BASOPHILS % 0.2 % (0.0-2.0); EOSINOPHILS % 8.2 % (0.0-5.0); HEMATOCRIT. 38.8 % (42.0-52.0); HEMOGLOBIN. 12.9 g/dL (14.0-18.0); LYMPHOCYTES % 9.4 % (20.0-50.0); MEAN CORPUSCULAR HEMOGLOBIN 30.5 pg (28.0-32.0); MEAN CORPUSCULAR VOLUME 91.4 fL (80.0-94.0); MEAN PLATELET VOLUME 7.3 fl (7.4-10.4); NEUTROPHILS % 73.2 % (40.0-76.0); PLATELET 318 x1000/uL (130-400); RED BLOOD CELL COUNT 4.24 mill/uL (4.7-6.1); RED CELL DISTRIBUTION WIDTH 13.3 % (11.6-14.6)
[2021-06-28 09:07] LABS: CHLORIDE 109 mEq/L (98-107)
[2021-06-28] MEDS ORDERED: LEVOFLOXACIN 750MG PREMIX 150 ML IV ONE (09:45)
[2021-06-28] MEDS ORDERED: LEVOFLOXACIN 500MG PREMIX 100 ML IV SCH (13:15)
[2021-06-28] MEDS ORDERED: ACETAMINOPHEN 325MG TABLET PO PRN (13:15)
[2021-06-28] MEDS ORDERED: ONDANSETRON HCL 4MG/2ML INJ IV PRN (13:15)
[2021-06-28] MEDS ORDERED: CLONIDINE 0.1MG TABLET PO PRN (13:15)
[2021-06-28] MEDS ORDERED: IPRATROPIUM/ALBUTEROL 0.5-3(2.5)MG/3ML NEB HHN PRN (13:15)
[2021-06-28] MEDS ORDERED: HYDROCODONE/ACETAMINOPHEN 5/325MG TABLET PO PRN (13:15)
[2021-06-28] MEDS ORDERED: DOCUSATE SODIUM 100MG CAPSULE PO PRN (13:15)
[2021-06-28] MEDS ORDERED: LORAZEPAM 2MG/ML CPJ IV PRN (13:15)
[2021-06-28] MEDS ORDERED: MAGNESIUM/ALUMINUM HYDROXIDE/SIMETHICONE 30ML UDC PO PRN (13:15)
[2021-06-28] MEDS ORDERED: NALOXONE HCL 0.4MG/ML VIAL IV PRN (13:30)
[2021-06-28] MEDS: GUAIFENESIN 200MG/10ML SUGAR FREE UDC PO PRN (14:32)
[2021-06-28] MEDS: METHYLPREDNISOLONE SOD SUCC 125 MG/2 ML VIAL IV SCH ×2 (14:32→21:17)
[2021-06-28] MEDS: LORATADINE 10MG TABLET PO SCH (14:33)
[2021-06-28] MEDS: ENOXAPARIN 40MG/0.4ML SYR SUBCUT SCH (14:34)
[2021-06-28] MEDS: IPRATROPIUM/ALBUTEROL 0.5-3(2.5)MG/3ML NEB HHN SCH (20:38)
[2021-06-28] MEDS: FINASTERIDE 5MG TABLET PO SCH (21:16)
[2021-06-28] MEDS: LEVETIRACETAM 500MG TABLET PO SCH ×2 (21:17→21:20)
[2021-06-28] MEDS: ATORVASTATIN CALCIUM 20MG TABLET PO SCH (21:17)
[2021-06-29] MEDS: METHYLPREDNISOLONE SOD SUCC 125 MG/2 ML VIAL IV SCH ×4 (00:39→23:18)
[2021-06-29] MEDS: IPRATROPIUM/ALBUTEROL 0.5-3(2.5)MG/3ML NEB HHN SCH ×3 (02:24→14:03)
[2021-06-29 08:00] VITALS: BP 114/53
[2021-06-29] MEDS ORDERED: FUROSEMIDE 20MG TABLET PO SCH (09:00)
[2021-06-29 09:37] LABS: BASOPHILS % 0.3 % (0.0-2.0); HEMATOCRIT. 38.8 % (42.0-52.0); HEMOGLOBIN. 13.4 g/dL (14.0-18.0); LYMPHOCYTES % 12.7 % (20.0-50.0); MEAN CORPUSCULAR HEMOGLOBIN 30.9 pg (28.0-32.0); MEAN CORPUSCULAR VOLUME 89.3 fL (80.0-94.0); MEAN PLATELET VOLUME 7.6 fl (7.4-10.4); MONOCYTES % 1.4 % (2.0-8.0); NEUTROPHILS % 85.6 % (40.0-76.0); PLATELET 365 x1000/uL (130-400); RED BLOOD CELL COUNT 4.34 mill/uL (4.7-6.1); RED CELL DISTRIBUTION WIDTH 13.4 % (11.6-14.6)
[2021-06-29 09:43] LABS: CHLORIDE 109 mEq/L (98-107)
[2021-06-29 09:51] LABS: HDL CHOLESTEROL 62 mg/dL (40-59); LDL CHOLESTEROL 64 mg/dL (5-100)
[2021-06-29] MEDS: LORATADINE 10MG TABLET PO SCH (10:18)
[2021-06-29] MEDS: ASPIRIN 81MG EC TABLET PO SCH (10:18)
[2021-06-29] MEDS: LEVETIRACETAM 500MG TABLET PO SCH ×2 (10:18→23:18)
[2021-06-29] MEDS: AMLODIPINE 10MG TABLET PO SCH (10:19)
[2021-06-29 12:00] VITALS: BP 96/42
[2021-06-29] MEDS: ENOXAPARIN 40MG/0.4ML SYR SUBCUT SCH (14:14)
[2021-06-29] MEDS: GUAIFENESIN 200MG/10ML SUGAR FREE UDC PO PRN (14:41)
[2021-06-29 14:48] LABS: BG BASE EXCESS -1.6 mmol/L (-2.0-2.0); BG CARBOXYHEMOGLOBIN 0.7 % (0.5-1.5); BG FRACTION INSPIRED OXYGEN 21; BG METHEMOGLOBIN 0.1 % (0.0-1.5); BG OXYGEN SATURATION 91.9 % (92.0-98.5); BG OXYHEMOGLOBIN 91.2 % (94.0-97.0); BG PCO2 29.7 mmHg (35.0-45.0); BG PH 7.467 (7.350-7.450); BG PO2 62.2 mmHg (75.0-100.0); BG SAMPLE SITE LEFT RADIAL; BG TOTAL HEMOGLOBIN 13.7 g/dL (12.0-18.0); BG VENT MODE ROOM AIR
[2021-06-29 16:00] VITALS: BP 116/48
[2021-06-29] MEDS ORDERED: FUROSEMIDE 20MG/2ML VIAL IVP NR (16:45)
[2021-06-29 20:00] VITALS: BP_SYST 101; BP_SYST 98; BP_DIAS 48
[2021-06-29] MEDS: FINASTERIDE 5MG TABLET PO SCH (23:18)
[2021-06-29] MEDS: ATORVASTATIN CALCIUM 20MG TABLET PO SCH (23:20)
[2021-06-30] VITALS (7 sets, daily range): BP systolic 94–129; BP diastolic 43–67
[2021-06-30 06:02] LABS: BG BASE EXCESS -0.6 mmol/L (-2.0-2.0); BG DEOXYHEMOGLOBIN 2.2 % (0.0-5.0); BG FRACTION INSPIRED OXYGEN 35; BG HCO3 ACT 22.1 mmol/L (22.0-26.0); BG METHEMOGLOBIN 0.2 % (0.0-1.5); BG OXYGEN SATURATION 97.8 % (92.0-98.5); BG OXYHEMOGLOBIN 97.6 % (94.0-97.0); BG PCO2 31.1 mmHg (35.0-45.0); BG PO2 108.5 mmHg (75.0-100.0); BG SAMPLE SITE LEFT RADIAL; BG TOTAL HEMOGLOBIN 14.3 g/dL (12.0-18.0); BG TOTAL RESPIRATORY RATE 21 b/min; BG VENT MODE MASK - BIPAP
[2021-06-30 07:04] LABS: HEMATOCRIT. 42.6 % (42.0-52.0); HEMOGLOBIN. 14.3 g/dL (14.0-18.0); MEAN CORPUSCULAR HEMOGLOBIN 30.6 pg (28.0-32.0); MEAN PLATELET VOLUME 7.2 fl (7.4-10.4); PLATELET 393 x1000/uL (130-400); RED BLOOD CELL COUNT 4.68 mill/uL (4.7-6.1); RED CELL DISTRIBUTION WIDTH 13.4 % (11.6-14.6)
[2021-06-30 07:29] LABS: INR 1.1; PROTHROMBIN TIME 11.5 sec (9.6-11.0)
[2021-06-30] MEDS: METHYLPREDNISOLONE SOD SUCC 125 MG/2 ML VIAL IV SCH (08:43)
[2021-06-30] MEDS: FUROSEMIDE 40MG/4ML VIAL IVP SCH (08:43)
[2021-06-30] MEDS: ASPIRIN 81MG EC TABLET PO SCH (08:43)
[2021-06-30] MEDS: LEVETIRACETAM 500MG TABLET PO SCH ×2 (08:44→20:48)
[2021-06-30] MEDS: LORATADINE 10MG TABLET PO SCH (08:44)
[2021-06-30] MEDS: AMLODIPINE 10MG TABLET PO SCH (08:45)
[2021-06-30 08:49] LABS: CHLORIDE 111 mEq/L (98-107)
[2021-06-30 09:02] LABS: T4 FREE 1.35 ng/dL (0.76-1.46)
[2021-06-30 09:22] LABS: PLATELET ESTIMATE NORMAL
[2021-06-30] MEDS: IPRATROPIUM/ALBUTEROL 0.5-3(2.5)MG/3ML NEB HHN SCH ×4 (09:31→21:43)
[2021-06-30] MEDS: LEVOFLOXACIN 750MG PREMIX 150 ML IV SCH (10:52)
[2021-06-30 10:56] LABS: BG BASE EXCESS -0.7 mmol/L (-2.0-2.0); BG CARBOXYHEMOGLOBIN 0.3 % (0.5-1.5); BG FRACTION INSPIRED OXYGEN 21; BG HCO3 ACT 21.5 mmol/L (22.0-26.0); BG METHEMOGLOBIN 0.4 % (0.0-1.5); BG OXYHEMOGLOBIN 98.3 % (94.0-97.0); BG PH 7.488 (7.350-7.450); BG PO2 179.8 mmHg (75.0-100.0); BG SAMPLE SITE LEFT RADIAL; BG TOTAL HEMOGLOBIN 14.2 g/dL (12.0-18.0); BG VENT MODE ROOM AIR
[2021-06-30] MEDS: POTASSIUM CHLORIDE 20MEQ TABLET SR PO SCH (12:49)
[2021-06-30] MEDS ORDERED: LIDOCAINE HCL 1% 20ML VIAL (Pyxis) INJ ONE (13:18)
[2021-06-30] MEDS ORDERED: IOHEXOL-350 100 ML BOTTLE ONE (14:24)
[2021-06-30] MEDS: ENOXAPARIN 40MG/0.4ML SYR SUBCUT SCH (15:41)
[2021-06-30] MEDS ORDERED: METHYLPREDNISOLONE SOD SUCC 40 MG/ML VIAL IV SCH (19:54)
[2021-06-30] MEDS: FINASTERIDE 5MG TABLET PO SCH (20:48)
[2021-06-30] MEDS: ATORVASTATIN CALCIUM 20MG TABLET PO SCH (20:48)
[2021-06-30] MEDS: METHYLPREDNISOLONE SOD SUCC 40 MG/ML VIAL IV SCH (21:32)
[2021-07-01] VITALS: BP 90/51
[2021-07-01 04:00] VITALS: BP 94/49
[2021-07-01 06:02] LABS: BASOPHILS % 0.3 % (0.0-2.0); HEMATOCRIT. 37.6 % (42.0-52.0); HEMOGLOBIN. 12.8 g/dL (14.0-18.0); LYMPHOCYTES % 8.9 % (20.0-50.0); MEAN CORPUSCULAR HEMOGLOBIN 30.7 pg (28.0-32.0); MEAN CORPUSCULAR VOLUME 89.8 fL (80.0-94.0); MEAN PLATELET VOLUME 7.9 fl (7.4-10.4); MONOCYTES % 4.4 % (2.0-8.0); NEUTROPHILS % 86.4 % (40.0-76.0); PLATELET 360 x1000/uL (130-400); RED BLOOD CELL COUNT 4.19 mill/uL (4.7-6.1); RED CELL DISTRIBUTION WIDTH 13.2 % (11.6-14.6)
[2021-07-01 06:20] LABS: CHLORIDE 111 mEq/L (98-107)
[2021-07-01 08:00] VITALS: BP 111/52
[2021-07-01] MEDS: AMLODIPINE 10MG TABLET PO SCH (09:00)
[2021-07-01] MEDS: LORATADINE 10MG TABLET PO SCH (09:12)
[2021-07-01] MEDS: POTASSIUM CHLORIDE 20MEQ TABLET SR PO SCH (09:12)
[2021-07-01] MEDS: METHYLPREDNISOLONE SOD SUCC 40 MG/ML VIAL IV SCH (09:12)
[2021-07-01] MEDS: FUROSEMIDE 40MG/4ML VIAL IVP SCH (09:12)
[2021-07-01] MEDS: LEVETIRACETAM 500MG TABLET PO SCH ×2 (09:12→20:31)
[2021-07-01] MEDS: ASPIRIN 81MG EC TABLET PO SCH (09:12)
[2021-07-01 12:05] VITALS: BP 122/58
[2021-07-01] MEDS: ENOXAPARIN 40MG/0.4ML SYR SUBCUT SCH (15:26)
[2021-07-01 16:00] VITALS: BP 104/66
[2021-07-01 20:00] VITALS: BP 98/51
[2021-07-01] MEDS: FINASTERIDE 5MG TABLET PO SCH (20:31)
[2021-07-01] MEDS: ATORVASTATIN CALCIUM 20MG TABLET PO SCH (20:31)
[2021-07-02] VITALS: BP 92/48
[2021-07-02 04:00] VITALS: BP 94/48
[2021-07-02] MEDS: IPRATROPIUM/ALBUTEROL 0.5-3(2.5)MG/3ML NEB HHN SCH ×3 (07:41→20:43)
[2021-07-02 08:00] VITALS: BP 92/48
[2021-07-02] MEDS: AMLODIPINE 10MG TABLET PO SCH (09:00)
[2021-07-02] MEDS: FUROSEMIDE 40MG/4ML VIAL IVP SCH (09:37)
[2021-07-02] MEDS: LORATADINE 10MG TABLET PO SCH (09:37)
[2021-07-02] MEDS: METHYLPREDNISOLONE SOD SUCC 40 MG/ML VIAL IV SCH (09:37)
[2021-07-02] MEDS: ASPIRIN 81MG EC TABLET PO SCH (09:38)
[2021-07-02] MEDS: LEVETIRACETAM 500MG TABLET PO SCH ×2 (09:38→21:07)
[2021-07-02] MEDS: POTASSIUM CHLORIDE 20MEQ TABLET SR PO SCH (09:38)
[2021-07-02] MEDS: LEVOFLOXACIN 750MG PREMIX 150 ML IV SCH (10:37)
[2021-07-02 12:00] VITALS: BP 98/58
[2021-07-02] MEDS: ENOXAPARIN 40MG/0.4ML SYR SUBCUT SCH (14:48)
[2021-07-02 16:00] VITALS: BP 93/50
[2021-07-02 20:29] VITALS: BP 94/48
[2021-07-02] MEDS: ATORVASTATIN CALCIUM 20MG TABLET PO SCH (21:07)
[2021-07-02] MEDS: FINASTERIDE 5MG TABLET PO SCH (21:07)
[2021-07-03] VITALS: BP 94/53
[2021-07-03] MEDS: IPRATROPIUM/ALBUTEROL 0.5-3(2.5)MG/3ML NEB HHN SCH ×3 (01:05→12:22)
[2021-07-03 04:42] VITALS: BP 98/49
[2021-07-03 08:07] VITALS: BP 104/54
[2021-07-03] MEDS: FUROSEMIDE 40MG/4ML VIAL IVP SCH (09:25)
[2021-07-03] MEDS: ASPIRIN 81MG EC TABLET PO SCH (09:26)
[2021-07-03] MEDS: POTASSIUM CHLORIDE 20MEQ TABLET SR PO SCH (09:26)
[2021-07-03] MEDS: LEVETIRACETAM 500MG TABLET PO SCH (09:27)
[2021-07-03] MEDS: LORATADINE 10MG TABLET PO SCH (09:27)
[2021-07-03] MEDS: AMLODIPINE 10MG TABLET PO SCH (09:31)
[2021-07-03] MEDS: METHYLPREDNISOLONE SOD SUCC 40 MG/ML VIAL IV SCH (09:31)
[2021-07-03 11:56] VITALS: BP 86/50
[2021-07-03 13:19] VITALS: BP 96/50
[2021-07-03] MEDS: ENOXAPARIN 40MG/0.4ML SYR SUBCUT SCH (14:00)
== END 2021-07-03 17:46 | disposition home health service (06) | DRG 291 ==
LOC: ER 08:11 → MICUSO 11:49 → EDBEDREQ 12:36 → EDBEDREQTM 12:36 → 7EST 22:12 → 7WST 06-29 18:37 → 6WST 06-30 08:24
PROVIDERS: ADMIT Hospitalist; ATTEND Internal Medicine
PROC: 5A09357 Assistance with Respiratory Ventilation, Less than 24 Consecutive Hours, Continuous Positive Airway Pressure (ICD-10-PCS; 2021-06-29)
PROC: 02HV33Z Insertion of Infusion Device into Superior Vena Cava, Percutaneous Approach (ICD-10-PCS; principal; 2021-06-30)
PROC: B548ZZA Ultrasonography of Superior Vena Cava, Guidance (ICD-10-PCS; 2021-06-30)
DX: I11.0 Hypertensive heart disease with heart failure (principal); J18.9 Pneumonia, unspecified organism; J96.01 Acute respiratory failure with hypoxia; I50.33 Acute on chronic diastolic (congestive) heart failure; J44.0 Chronic obstructive pulmonary disease with (acute) lower respiratory infection; J44.1 Chronic obstructive pulmonary disease with (acute) exacerbation; N40.0 Benign prostatic hyperplasia without lower urinary tract symptoms; D64.9 Anemia, unspecified; E86.0 Dehydration; E88.09 Other disorders of plasma-protein metabolism, not elsewhere classified; G40.909 Epilepsy, unspecified, not intractable, without status epilepticus; G80.9 Cerebral palsy, unspecified; Z86.73 Personal history of transient ischemic attack (TIA), and cerebral infarction without residual deficits; Z20.822 Contact with and (suspected) exposure to COVID-19; Z79.899 Other long term (current) drug therapy; Z79.82 Long term (current) use of aspirin
CPT/HCPCS: 36415; 36573; 36600; 71045; 71275; 80048; 80053; 80061; 82375; 82805; 83036; 83880; 84153; 84439; 84443; 84484; 85025; 85379; 87426; 93005; 93970; 94640; 94660; 99285; C1725; J1650; J1940; J1956; J2920; J2930; J3490; Q9967; U0003; U0005; G0103

== ENCOUNTER 2022-02-11 18:04 | Inpatient (IN) | payer MEDICARE, MEDICAID ==
[~2022-02-11] VITALS: Ht 162.6 cm; Wt 50.3 kg
[2022-02-11] MEDS ORDERED: IPRATROPIUM BROMIDE (0.02%) 0.5MG/2.5ML NEB HHN STA (18:12)
[2022-02-11] MEDS ORDERED: ALBUTEROL (0.083%) 2.5MG/3ML NEB HHN STA (18:12)
[2022-02-11] MEDS ORDERED: METHYLPREDNISOLONE SOD SUCC 125 MG/2 ML VIAL IV STA (18:12)
[2022-02-11 18:31] LABS: BASOPHILS % 0.7 % (0.0-2.0); EOSINOPHILS % 5.2 % (0.0-5.0); HEMOGLOBIN. 13.4 g/dL (14.0-18.0); LYMPHOCYTES % 20.4 % (20.0-50.0); MEAN CORPUSCULAR HEMOGLOBIN 30.4 pg (28.0-32.0); MEAN CORPUSCULAR VOLUME 91.2 fL (80.0-94.0); MEAN PLATELET VOLUME 7.6 fl (7.4-10.4); MONOCYTES % 3.8 % (2.0-8.0); NEUTROPHILS % 69.9 % (40.0-76.0); PLATELET 338 x1000/uL (130-400); RED BLOOD CELL COUNT 4.39 mill/uL (4.7-6.1); RED CELL DISTRIBUTION WIDTH 13.5 % (11.6-14.6)
[2022-02-11 18:41] LABS: CHLORIDE 105 mEq/L (98-107)
[2022-02-11] MEDS ORDERED: CEFTRIAXONE 1 G PREMIX 50 ML IV NR (19:30)
[2022-02-11] MEDS ORDERED: SODIUM CHLORIDE 0.9% 500 ML IV NR ×2 (20:00→23:15)
[2022-02-11] MEDS ORDERED: AZITHROMYCIN 500MG/250ML 250 ML IV SCH (20:00)
[2022-02-11 20:17] LABS: CHLORIDE 107 mEq/L (98-107)
[2022-02-11 22:35] LABS: CLARITY URINE CLEAR (CLEAR); COLOR URINE YELLOW (YELLOW); KETONES URINE NEGATIVE (NEGATIVE); LEUKOCYTE ESTERASE URINE NEGATIVE (NEGATIVE); NITRITE URINE NEGATIVE (NEGATIVE); OCCULT BLOOD URINE NEGATIVE (NEGATIVE); PROTEIN URINE NEGATIVE (NEGATIVE); SPECIFIC GRAVITY URINE 1.017 (1.005-1.030)
[2022-02-11] MEDS ORDERED: SODIUM CHLORIDE 0.9% 500 ML IV ONE (23:00)
[2022-02-12] VITALS (13 sets, daily range): BP systolic 112–150; BP diastolic 53–88
[2022-02-12] MEDS: IPRATROPIUM/ALBUTEROL 0.5-3(2.5)MG/3ML NEB HHN SCH ×3 (10:00→20:53)
[2022-02-12] MEDS: METHYLPREDNISOLONE SOD SUCC 40 MG/ML VIAL IV SCH ×2 (10:43→18:41)
[2022-02-12 11:01] LABS: BG BASE EXCESS -0.7 mmol/L (-2.0-2.0); BG CARBOXYHEMOGLOBIN 0.3 % (0.5-1.5); BG DEOXYHEMOGLOBIN 3.3 % (0.0-5.0); BG FRACTION INSPIRED OXYGEN 28; BG HCO3 ACT 22.8 mmol/L (22.0-26.0); BG METHEMOGLOBIN 0.3 % (0.0-1.5); BG OXYGEN SATURATION 96.7 % (92.0-98.5); BG OXYHEMOGLOBIN 96.1 % (94.0-97.0); BG PCO2 33.7 mmHg (35.0-45.0); BG PH 7.448 (7.350-7.450); BG PO2 88.6 mmHg (75.0-100.0); BG SAMPLE SITE LEFT RADIAL; BG TOTAL HEMOGLOBIN 12.3 g/dL (12.0-18.0); BG VENT MODE NASAL CANNULA
[2022-02-12 18:23] LABS: BASOPHILS % 0.2 % (0.0-2.0); HEMATOCRIT. 37.8 % (42.0-52.0); HEMOGLOBIN. 12.7 g/dL (14.0-18.0); LYMPHOCYTES % 8.5 % (20.0-50.0); MEAN CORPUSCULAR HEMOGLOBIN 30.6 pg (28.0-32.0); MEAN CORPUSCULAR VOLUME 91.2 fL (80.0-94.0); MEAN PLATELET VOLUME 7.9 fl (7.4-10.4); MONOCYTES % 1.3 % (2.0-8.0); PLATELET 291 x1000/uL (130-400); RED BLOOD CELL COUNT 4.14 mill/uL (4.7-6.1); RED CELL DISTRIBUTION WIDTH 13.3 % (11.6-14.6)
[2022-02-12 18:33] LABS: CHLORIDE 108 mEq/L (98-107)
[2022-02-13] VITALS (16 sets, daily range): BP systolic 70–141; BP diastolic 23–81
[2022-02-13] MEDS: METHYLPREDNISOLONE SOD SUCC 40 MG/ML VIAL IV SCH ×3 (02:00→18:00)
[2022-02-13] MEDS: IPRATROPIUM/ALBUTEROL 0.5-3(2.5)MG/3ML NEB HHN SCH ×4 (02:32→19:58)
[2022-02-13] MEDS ORDERED: ONDANSETRON HCL 4MG/2ML INJ IV PRN (11:30)
[2022-02-13] MEDS ORDERED: ACETAMINOPHEN 325MG TABLET PO PRN (11:30)
[2022-02-14] VITALS (11 sets, daily range): BP systolic 107–136; BP diastolic 59–98
[2022-02-14] MEDS: IPRATROPIUM/ALBUTEROL 0.5-3(2.5)MG/3ML NEB HHN SCH ×3 (02:02→13:11)
[2022-02-14] MEDS: METHYLPREDNISOLONE SOD SUCC 40 MG/ML VIAL IV SCH ×2 (02:24→09:23)
== END 2022-02-14 17:20 | DRG 190 ==
LOC: ER 18:04 → MICUSO 21:05 → 5EST 02-12 04:33
PROVIDERS: ADMIT Internal Medicine; ATTEND Internal Medicine
PROC: 5A09357 Assistance with Respiratory Ventilation, Less than 24 Consecutive Hours, Continuous Positive Airway Pressure (ICD-10-PCS; principal; 2022-02-11)
DX: J44.1 Chronic obstructive pulmonary disease with (acute) exacerbation (principal); J96.01 Acute respiratory failure with hypoxia; R65.11 Systemic inflammatory response syndrome (SIRS) of non-infectious origin with acute organ dysfunction; E87.1 Hypo-osmolality and hyponatremia; I50.32 Chronic diastolic (congestive) heart failure; I11.0 Hypertensive heart disease with heart failure; E87.5 Hyperkalemia; G40.909 Epilepsy, unspecified, not intractable, without status epilepticus; Z20.822 Contact with and (suspected) exposure to COVID-19; N40.0 Benign prostatic hyperplasia without lower urinary tract symptoms; Z79.82 Long term (current) use of aspirin; Z86.73 Personal history of transient ischemic attack (TIA), and cerebral infarction without residual deficits; Z79.899 Other long term (current) drug therapy
CPT/HCPCS: 36415; 36600; 71045; 80048; 80053; 81003; 82375; 82805; 83605; 83880; 84145; 84484; 85025; 87426; 87804; 93005; 94640; 94644; 94660; 99291; A6261; J0456; J0696; J2920; J2930

== ENCOUNTER 2022-05-31 12:20 | Emergency (ER) | payer MEDICARE, MEDICAID ==
[~2022-05-31] VITALS: Ht 165.1 cm; Wt 55.0 kg
[2022-05-31 16:02] LABS: BASOPHILS % 0.9 % (0.0-2.0); EOSINOPHILS % 10.4 % (0.0-5.0); HEMOGLOBIN. 15.7 g/dL (14.0-18.0); LYMPHOCYTES % 19.9 % (20.0-50.0); MEAN CORPUSCULAR HEMOGLOBIN 31.3 pg (28.0-32.0); MONOCYTES % 4.9 % (2.0-8.0); NEUTROPHILS % 63.9 % (40.0-76.0); RED CELL DISTRIBUTION WIDTH 14.1 % (11.6-14.6)
[2022-05-31 20:00] VITALS: BP 138/73
== END 2022-05-31 20:03 | disposition home or self-care (01) ==
LOC: ER 12:37
DX: K92.1 Melena (principal); I11.0 Hypertensive heart disease with heart failure; I50.9 Heart failure, unspecified; Z79.82 Long term (current) use of aspirin; Z86.73 Personal history of transient ischemic attack (TIA), and cerebral infarction without residual deficits
CPT/HCPCS: 36415; 85025; 99283

== ENCOUNTER 2022-11-18 09:22 | Inpatient (IN) | payer MEDICARE, MEDICAID ==
[~2022-11-18] VITALS: Ht 165.1 cm; Wt 49.0 kg
[2022-11-18] MEDS ORDERED: DEXAMETHASONE 10 MG/ML VIAL IV ONE (11:00)
[2022-11-18] MEDS ORDERED: IPRATROPIUM BROMIDE (0.02%) 0.5MG/2.5ML NEB HHN ONE (11:00)
[2022-11-18] MEDS ORDERED: SODIUM CHLORIDE 0.9% 500 ML IV ONE (11:00)
[2022-11-18] MEDS ORDERED: ALBUTEROL (0.5%) 2.5MG/0.5ML NEB HHN ONE (11:00)
[2022-11-18] MEDS ORDERED: DOXYCYCLINE HYCLATE 100MG CAPSULE PO NR (11:45)
[2022-11-18] MEDS ORDERED: CEFTRIAXONE 1 G PREMIX 50 ML IV NR (11:45)
[2022-11-18 12:48] LABS: CHLORIDE 106 mEq/L (98-107)
[2022-11-18 13:02] LABS: HEMATOCRIT. 40.5 % (42.0-52.0); HEMOGLOBIN. 13.4 g/dL (14.0-18.0); MEAN CORPUSCULAR HEMOGLOBIN 29.9 pg (28.0-32.0); MEAN CORPUSCULAR VOLUME 90.2 fL (80.0-94.0); MEAN PLATELET VOLUME 8.1 fl (7.4-10.4); PLATELET 371 x1000/uL (130-400); RED BLOOD CELL COUNT 4.49 mill/uL (4.7-6.1); RED CELL DISTRIBUTION WIDTH 13.6 % (11.6-14.6)
[2022-11-18 13:26] LABS: ETHANOL BLOOD < 10 mg/dL
[2022-11-18] MEDS ORDERED: SODIUM CHLORIDE 0.9% 1,000 ML IV ONE (13:30)
[2022-11-18 14:15] LABS: PLATELET ESTIMATE NORMAL
[2022-11-18] MEDS ORDERED: ONDANSETRON HCL 4MG/2ML INJ IV PRN (14:15)
[2022-11-18] MEDS ORDERED: DOCUSATE SODIUM 100MG CAPSULE PO PRN (14:15)
[2022-11-18] MEDS ORDERED: CEFTRIAXONE 1 G PREMIX 50 ML IV SCH (14:15)
[2022-11-18] MEDS ORDERED: ACETAMINOPHEN 325MG TABLET PO PRN ×2 (14:15)
[2022-11-18] MEDS ORDERED: NA PHOS,M-B/NA PHOS,DI-BA ENEMA 118ML PR PRN (14:15)
[2022-11-18] MEDS ORDERED: CLONIDINE 0.1MG TABLET PO PRN (14:15)
[2022-11-18 14:40] LABS: BG BASE EXCESS 2.6 mmol/L (-2.0-2.0); BG CARBOXYHEMOGLOBIN 0.8 % (0.5-1.5); BG DEOXYHEMOGLOBIN 9.3 % (0.0-5.0); BG HCO3 ACT 25.8 mmol/L (22.0-26.0); BG METHEMOGLOBIN 0.3 % (0.0-1.5); BG OXYGEN SATURATION 90.6 % (92.0-98.5); BG OXYHEMOGLOBIN 89.6 % (94.0-97.0); BG PCO2 35.2 mmHg (35.0-45.0); BG PH 7.483 (7.350-7.450); BG PO2 57.2 mmHg (75.0-100.0); BG SAMPLE SITE RIGHT RADIAL; BG TOTAL HEMOGLOBIN 13.4 g/dL (12.0-18.0); BG VENT MODE ROOM AIR
[2022-11-18] MEDS ORDERED: ACETYLCYSTEINE 200MG/ML 20% VIAL 30ML PO SCH (15:00)
[2022-11-18 15:13] LABS: PROTHROMBIN TIME 10.9 sec (9.6-11.0)
[2022-11-18] MEDS ORDERED: AZITHROMYCIN 500 MG in DEXT 5% WATER 250 ML IV SCH (15:30)
[2022-11-18] MEDS: SODIUM CHLORIDE 0.9% 1,000 ML IV SCH (15:57)
[2022-11-18] MEDS: ENOXAPARIN 40MG/0.4ML SYR SUBCUT SCH (16:00)
[2022-11-18] MEDS ORDERED: ACETYLCYSTEINE 200MG/ML 20% VIAL 4ML INH NR (16:00)
[2022-11-18] MEDS: BUDESONIDE 0.5MG/2ML NEB HHN SCH ×2 (16:14→20:00)
[2022-11-18] MEDS: IPRATROPIUM/ALBUTEROL 0.5-3(2.5)MG/3ML NEB NEB PRN (16:14)
[2022-11-18 18:23] LABS: CLARITY URINE CLOUDY (CLEAR); COLOR URINE DARK YELLOW (YELLOW); KETONES URINE TRACE (NEGATIVE); LEUKOCYTE ESTERASE URINE 2+ (NEGATIVE); NITRITE URINE POSITIVE (NEGATIVE); OCCULT BLOOD URINE 3+ (NEGATIVE); PROTEIN URINE 2+ (NEGATIVE); SPECIFIC GRAVITY URINE 1.024 (1.005-1.030)
[2022-11-18 19:19] LABS: *AMPHETAMINES SCREEN URINE NEGATIVE (NEGATIVE); *BARBITURATES SCREEN URINE NEGATIVE (NEGATIVE); *BENZODIAZEPINES SCREEN URINE NEGATIVE (NEGATIVE); *COCAINE SCREEN URINE NEGATIVE (NEGATIVE); CANNABINOID URINE SCREEN NEGATIVE (NEGATIVE); METHADONE URINE SCREEN NEGATIVE (NEGATIVE); OPIATES URINE SCREEN NEGATIVE (NEGATIVE); PHENCYCLIDINE URINE SCREEN NEGATIVE (NEGATIVE)
[2022-11-18 21:23] LABS: FOLIC ACID (FOLATE) SERUM 12.2 ng/mL (>5.38)
[2022-11-18] MEDS: FAMOTIDINE 20MG TABLET PO SCH (22:00)
[2022-11-18] MEDS: ATORVASTATIN CALCIUM 20MG TABLET PO SCH (22:00)
[2022-11-18] MEDS: FINASTERIDE 5MG TABLET PO SCH (22:01)
[2022-11-18] MEDS: LEVETIRACETAM 500MG TABLET PO SCH (22:01)
[2022-11-18 23:28] VITALS: BP 116/59
[2022-11-19] VITALS (7 sets, daily range): BP systolic 110–121; BP diastolic 60–66
[2022-11-19] MEDS: SODIUM CHLORIDE 0.9% 1,000 ML IV SCH ×2 (03:53→18:25)
[2022-11-19] MEDS ORDERED: MONT-39 PO (06:20)
[2022-11-19] MEDS ORDERED: TAMS-11 PO (06:20)
[2022-11-19 06:24] LABS: HEMATOCRIT. 38.2 % (42.0-52.0); MEAN CORPUSCULAR HEMOGLOBIN 30.5 pg (28.0-32.0); MEAN CORPUSCULAR VOLUME 89.8 fL (80.0-94.0); MEAN PLATELET VOLUME 7.3 fl (7.4-10.4); PLATELET 344 x1000/uL (130-400); RED BLOOD CELL COUNT 4.25 mill/uL (4.7-6.1); RED CELL DISTRIBUTION WIDTH 13.2 % (11.6-14.6)
[2022-11-19 06:33] LABS: CHLORIDE 114 mEq/L (98-107)
[2022-11-19] MEDS ORDERED: AMLODIPINE 10MG TABLET PO SCH (09:00)
[2022-11-19] MEDS ORDERED: IPRATROPIUM/ALBUTEROL 0.5-3(2.5)MG/3ML NEB HHN ONE (09:15)
[2022-11-19] MEDS: LEVETIRACETAM 500MG TABLET PO SCH ×2 (09:40→20:55)
[2022-11-19] MEDS: ALBUTEROL 6.7GM HFA INHALER ORI PRN ×2 (10:43→15:54)
[2022-11-19] MEDS: GUAIFENESIN 200MG TABLET PO PRN (10:43)
[2022-11-19] MEDS: CEFTRIAXONE 1,000 MG in DEXTROSE 5% WATER 50 ML IV SCH (13:47)
[2022-11-19] MEDS ORDERED: CEFTRIAXONE 1 G PREMIX 50 ML IV SCH (14:15)
[2022-11-19] MEDS: BUDESONIDE 0.5MG/2ML NEB HHN SCH ×2 (15:00→22:28)
[2022-11-19] MEDS ORDERED: AZITHROMYCIN 500 MG in DEXT 5% WATER 250 ML IV SCH (15:30)
[2022-11-19] MEDS: ENOXAPARIN 40MG/0.4ML SYR SUBCUT SCH (16:04)
[2022-11-19 19:13] LABS: PLATELET ESTIMATE NORMAL
[2022-11-19] MEDS: ATORVASTATIN CALCIUM 20MG TABLET PO SCH (20:55)
[2022-11-19] MEDS: FAMOTIDINE 20MG TABLET PO SCH (20:55)
[2022-11-19] MEDS: FINASTERIDE 5MG TABLET PO SCH (20:55)
[2022-11-19] MEDS: IPRATROPIUM/ALBUTEROL 0.5-3(2.5)MG/3ML NEB NEB PRN (22:28)
[2022-11-20] VITALS: BP 113/65
[2022-11-20 04:00] VITALS: BP 109/66
[2022-11-20 06:49] LABS: BASOPHILS % 0.4 % (0.0-2.0); HEMATOCRIT. 35.1 % (42.0-52.0); HEMOGLOBIN. 11.7 g/dL (14.0-18.0); LYMPHOCYTES % 11.4 % (20.0-50.0); MEAN CORPUSCULAR HEMOGLOBIN 29.6 pg (28.0-32.0); MEAN CORPUSCULAR VOLUME 88.6 fL (80.0-94.0); MEAN PLATELET VOLUME 7.5 fl (7.4-10.4); MONOCYTES % 8.2 % (2.0-8.0); PLATELET 377 x1000/uL (130-400); RED BLOOD CELL COUNT 3.96 mill/uL (4.7-6.1); RED CELL DISTRIBUTION WIDTH 13.3 % (11.6-14.6)
[2022-11-20 07:17] LABS: CHLORIDE 111 mEq/L (98-107)
[2022-11-20 08:00] VITALS: BP_SYST 111; BP_SYST 119; BP_DIAS 52; BP_DIAS 62
[2022-11-20] MEDS ORDERED: POTASSIUM CHLORIDE 20MEQ TABLET SR PO NR (08:00)
[2022-11-20] MEDS: LEVETIRACETAM 500MG TABLET PO SCH ×2 (10:25→21:07)
[2022-11-20] MEDS: SODIUM CHLORIDE 0.9% 1,000 ML IV SCH (10:25)
[2022-11-20 12:00] VITALS: BP 123/64
[2022-11-20] MEDS: CEFTRIAXONE 1,000 MG in DEXTROSE 5% WATER 50 ML IV SCH (13:22)
[2022-11-20 16:00] VITALS: BP 129/69
[2022-11-20] MEDS: AZITHROMYCIN 500 MG in DEXT 5% WATER 250 ML IV SCH (16:18)
[2022-11-20] MEDS: ENOXAPARIN 40MG/0.4ML SYR SUBCUT SCH (16:19)
[2022-11-20] MEDS: ALBUTEROL 6.7GM HFA INHALER ORI PRN (17:05)
[2022-11-20 20:00] VITALS: BP 126/67
[2022-11-20] MEDS: FAMOTIDINE 20MG TABLET PO SCH (21:07)
[2022-11-20] MEDS: ATORVASTATIN CALCIUM 20MG TABLET PO SCH (21:07)
[2022-11-20] MEDS: FINASTERIDE 5MG TABLET PO SCH (21:07)
[2022-11-20] MEDS: BUDESONIDE 0.5MG/2ML NEB HHN SCH (21:32)
[2022-11-21] VITALS: BP 130/71
[2022-11-21 04:00] VITALS: BP 146/80
[2022-11-21 07:42] LABS: BASOPHILS % 0.3 % (0.0-2.0); EOSINOPHILS % 0.1 % (0.0-5.0); HEMATOCRIT. 35.4 % (42.0-52.0); LYMPHOCYTES % 10.7 % (20.0-50.0); MEAN CORPUSCULAR HEMOGLOBIN 30.1 pg (28.0-32.0); MEAN CORPUSCULAR VOLUME 88.7 fL (80.0-94.0); MEAN PLATELET VOLUME 7.4 fl (7.4-10.4); MONOCYTES % 8.3 % (2.0-8.0); NEUTROPHILS % 80.6 % (40.0-76.0); PLATELET 436 x1000/uL (130-400); RED BLOOD CELL COUNT 3.99 mill/uL (4.7-6.1); RED CELL DISTRIBUTION WIDTH 13.1 % (11.6-14.6)
[2022-11-21 08:00] VITALS: BP 131/77
[2022-11-21 08:23] LABS: CHLORIDE 108 mEq/L (98-107)
[2022-11-21] MEDS: LEVETIRACETAM 500MG TABLET PO SCH ×2 (10:14→21:13)
[2022-11-21 12:00] VITALS: BP 126/72
[2022-11-21] MEDS: CEFTRIAXONE 1,000 MG in DEXTROSE 5% WATER 50 ML IV SCH (12:49)
[2022-11-21] MEDS: ENOXAPARIN 40MG/0.4ML SYR SUBCUT SCH (12:50)
[2022-11-21] MEDS ORDERED: POTASSIUM CHLORIDE 20MEQ TABLET SR PO SCH (14:00)
[2022-11-21] MEDS ORDERED: IOHEXOL-350 100 ML BOTTLE ONE (15:24)
[2022-11-21] MEDS: AZITHROMYCIN 500 MG in DEXT 5% WATER 250 ML IV SCH (15:59)
[2022-11-21 16:00] VITALS: BP 136/82
[2022-11-21] MEDS: ALBUTEROL 6.7GM HFA INHALER ORI PRN (17:42)
[2022-11-21 20:00] VITALS: BP 119/75
[2022-11-21] MEDS: FINASTERIDE 5MG TABLET PO SCH (21:13)
[2022-11-21] MEDS: FAMOTIDINE 20MG TABLET PO SCH (21:13)
[2022-11-21] MEDS: ATORVASTATIN CALCIUM 20MG TABLET PO SCH (21:13)
[2022-11-21] MEDS: BUDESONIDE 0.5MG/2ML NEB HHN SCH (21:53)
[2022-11-22] VITALS: BP 121/70
[2022-11-22 04:00] VITALS: BP 109/63
[2022-11-22 07:03] LABS: BASOPHILS % 0.3 % (0.0-2.0); EOSINOPHILS % 0.5 % (0.0-5.0); HEMATOCRIT. 36.5 % (42.0-52.0); HEMOGLOBIN. 12.8 g/dL (14.0-18.0); LYMPHOCYTES % 12.6 % (20.0-50.0); MEAN CORPUSCULAR VOLUME 88.7 fL (80.0-94.0); MEAN PLATELET VOLUME 7.3 fl (7.4-10.4); MONOCYTES % 8.1 % (2.0-8.0); NEUTROPHILS % 78.5 % (40.0-76.0); PLATELET 464 x1000/uL (130-400); RED BLOOD CELL COUNT 4.11 mill/uL (4.7-6.1)
[2022-11-22 07:27] LABS: CHLORIDE 108 mEq/L (98-107)
[2022-11-22 08:00] VITALS: BP 122/70
[2022-11-22] MEDS: BUDESONIDE 0.5MG/2ML NEB HHN SCH (09:19)
[2022-11-22] MEDS: LEVETIRACETAM 500MG TABLET PO SCH ×2 (09:55→21:35)
[2022-11-22] MEDS: ENOXAPARIN 40MG/0.4ML SYR SUBCUT SCH (09:56)
[2022-11-22] MEDS: AZITHROMYCIN 500 MG TABLET PO SCH (09:56)
[2022-11-22] MEDS ORDERED: GUAIFENESIN 200MG TABLET PO NR (10:00)
[2022-11-22 12:00] VITALS: BP 110/69
[2022-11-22] MEDS: CEFTRIAXONE 1,000 MG in DEXTROSE 5% WATER 50 ML IV SCH (12:31)
[2022-11-22 16:00] VITALS: BP 117/70
[2022-11-22 20:00] VITALS: BP 116/67
[2022-11-22] MEDS: FAMOTIDINE 20MG TABLET PO SCH (21:35)
[2022-11-22] MEDS: ATORVASTATIN CALCIUM 20MG TABLET PO SCH (21:35)
[2022-11-22] MEDS: FINASTERIDE 5MG TABLET PO SCH (21:35)
[2022-11-23] VITALS (7 sets, daily range): BP systolic 105–127; BP diastolic 60–77
[2022-11-23] MEDS: BUDESONIDE 0.5MG/2ML NEB HHN SCH ×2 (01:05→22:26)
[2022-11-23] MEDS: AZITHROMYCIN 500 MG TABLET PO SCH (09:26)
[2022-11-23] MEDS: LEVETIRACETAM 500MG TABLET PO SCH ×2 (09:26→20:34)
[2022-11-23] MEDS: ENOXAPARIN 40MG/0.4ML SYR SUBCUT SCH (09:27)
[2022-11-23] MEDS: CEFTRIAXONE 1,000 MG in DEXTROSE 5% WATER 50 ML IV SCH (12:46)
[2022-11-23] MEDS: FINASTERIDE 5MG TABLET PO SCH (20:33)
[2022-11-23] MEDS: FAMOTIDINE 20MG TABLET PO SCH (20:33)
[2022-11-23] MEDS: ATORVASTATIN CALCIUM 20MG TABLET PO SCH (20:34)
[2022-11-24] VITALS: BP 111/73
[2022-11-24 04:00] VITALS: BP 121/79
[2022-11-24 08:00] VITALS: BP 126/70
[2022-11-24] MEDS: LEVETIRACETAM 500MG TABLET PO SCH ×2 (10:01→21:37)
[2022-11-24] MEDS: ENOXAPARIN 40MG/0.4ML SYR SUBCUT SCH (10:02)
[2022-11-24] MEDS: ALBUTEROL 6.7GM HFA INHALER ORI PRN (10:02)
[2022-11-24] MEDS: BUDESONIDE 0.5MG/2ML NEB HHN SCH ×2 (11:02→21:36)
[2022-11-24 12:00] VITALS: BP 101/55
[2022-11-24] MEDS: GUAIFENESIN 200MG TABLET PO PRN (15:32)
[2022-11-24 16:00] VITALS: BP 115/69
[2022-11-24 20:00] VITALS: BP 113/68
[2022-11-24] MEDS: ALBUTEROL (0.083%) 2.5MG/3ML NEB HHN SCH (21:35)
[2022-11-24] MEDS: FINASTERIDE 5MG TABLET PO SCH (21:37)
[2022-11-24] MEDS: ATORVASTATIN CALCIUM 20MG TABLET PO SCH (21:37)
[2022-11-24] MEDS: FAMOTIDINE 20MG TABLET PO SCH (21:37)
[2022-11-25] VITALS: BP 108/65
[2022-11-25] MEDS: ALBUTEROL (0.083%) 2.5MG/3ML NEB HHN SCH ×5 (00:58→21:44)
[2022-11-25] MEDS: ACETYLCYSTEINE 100MG/ML 10% VIAL 4ML INH SCH ×3 (00:59→14:50)
[2022-11-25 04:00] VITALS: BP 95/50
[2022-11-25 07:24] LABS: CHLORIDE 109 mEq/L (98-107)
[2022-11-25 08:00] VITALS: BP 108/54
[2022-11-25 09:04] LABS: BASOPHILS % 1.4 % (0.0-2.0); EOSINOPHILS % 1.6 % (0.0-5.0); HEMATOCRIT. 41.8 % (42.0-52.0); HEMOGLOBIN. 13.9 g/dL (14.0-18.0); LYMPHOCYTES % 16.4 % (20.0-50.0); MEAN CORPUSCULAR HEMOGLOBIN 30.1 pg (28.0-32.0); MEAN CORPUSCULAR VOLUME 90.2 fL (80.0-94.0); MONOCYTES % 10.6 % (2.0-8.0); RED BLOOD CELL COUNT 4.64 mill/uL (4.7-6.1); RED CELL DISTRIBUTION WIDTH 13.7 % (11.6-14.6)
[2022-11-25] MEDS: ENOXAPARIN 40MG/0.4ML SYR SUBCUT SCH (09:53)
[2022-11-25] MEDS: LEVETIRACETAM 500MG TABLET PO SCH ×2 (09:53→21:38)
[2022-11-25] MEDS: BUDESONIDE 0.5MG/2ML NEB HHN SCH ×2 (10:45→21:44)
[2022-11-25 12:00] VITALS: BP 115/45
[2022-11-25 16:00] VITALS: BP 108/48
[2022-11-25 20:00] VITALS: BP 120/60
[2022-11-25] MEDS: ATORVASTATIN CALCIUM 20MG TABLET PO SCH (21:38)
[2022-11-25] MEDS: FAMOTIDINE 20MG TABLET PO SCH (21:38)
[2022-11-25] MEDS: FINASTERIDE 5MG TABLET PO SCH (21:38)
[2022-11-26] VITALS: BP 100/56
[2022-11-26] MEDS: ALBUTEROL (0.083%) 2.5MG/3ML NEB HHN SCH ×6 (00:32→21:06)
[2022-11-26] MEDS: ACETYLCYSTEINE 100MG/ML 10% VIAL 4ML INH SCH ×2 (00:36→10:00)
[2022-11-26 04:00] VITALS: BP 112/61
[2022-11-26 07:31] LABS: CHLORIDE 109 mEq/L (98-107)
[2022-11-26 08:00] VITALS: BP 101/57
[2022-11-26] MEDS: LEVETIRACETAM 500MG TABLET PO SCH ×2 (08:15→22:10)
[2022-11-26] MEDS: ENOXAPARIN 40MG/0.4ML SYR SUBCUT SCH (08:17)
[2022-11-26 09:44] LABS: CLARITY URINE CLEAR (CLEAR); COLOR URINE YELLOW (YELLOW); KETONES URINE NEGATIVE (NEGATIVE); LEUKOCYTE ESTERASE URINE NEGATIVE (NEGATIVE); NITRITE URINE NEGATIVE (NEGATIVE); OCCULT BLOOD URINE NEGATIVE (NEGATIVE); PROTEIN URINE NEGATIVE (NEGATIVE); SPECIFIC GRAVITY URINE 1.025 (1.005-1.030)
[2022-11-26] MEDS: BUDESONIDE 0.5MG/2ML NEB HHN SCH ×2 (09:59→21:06)
[2022-11-26 12:00] VITALS: BP 99/55
[2022-11-26 12:49] LABS: BASOPHILS % 0.8 % (0.0-2.0); EOSINOPHILS % 1.4 % (0.0-5.0); HEMOGLOBIN. 13.7 g/dL (14.0-18.0); LYMPHOCYTES % 19.3 % (20.0-50.0); MEAN CORPUSCULAR HEMOGLOBIN 31.3 pg (28.0-32.0); MEAN CORPUSCULAR VOLUME 93.7 fL (80.0-94.0); MEAN PLATELET VOLUME 7.5 fl (7.4-10.4); NEUTROPHILS % 64.5 % (40.0-76.0); PLATELET 521 x1000/uL (130-400); RED BLOOD CELL COUNT 4.38 mill/uL (4.7-6.1); RED CELL DISTRIBUTION WIDTH 13.5 % (11.6-14.6)
[2022-11-26 15:49] VITALS: BP 98/68
[2022-11-26] MEDS: SODIUM CHLORIDE 3% FOR INH 4ML UD NEB INH SCH (16:25)
[2022-11-26 20:00] VITALS: BP 95/56
[2022-11-26] MEDS: FINASTERIDE 5MG TABLET PO SCH (22:09)
[2022-11-26] MEDS: FAMOTIDINE 20MG TABLET PO SCH (22:09)
[2022-11-26] MEDS: ATORVASTATIN CALCIUM 20MG TABLET PO SCH (22:10)
[2022-11-27] VITALS: BP 99/46
[2022-11-27] MEDS: ACETYLCYSTEINE 200MG/ML 20% VIAL 4ML INH SCH ×4 (00:30→22:00)
[2022-11-27] MEDS: ALBUTEROL (0.083%) 2.5MG/3ML NEB HHN SCH ×6 (00:30→20:23)
[2022-11-27 04:00] VITALS: BP 110/53
[2022-11-27 07:37] LABS: HEMATOCRIT 37.8 % (42.0-52.0); HEMOGLOBIN 13.2 g/dL (14.0-18.0); MEAN CORPUSCULAR HEMOGLOBIN 32.6 pg (28.0-32.0); MEAN CORPUSCULAR VOLUME 93.4 fL (80.0-94.0); PLATELET 518 x1000/uL (130-400); RED BLOOD CELL COUNT 4.05 mill/uL (4.7-6.1); RED CELL DISTRIBUTION WIDTH 13.4 % (11.6-14.6)
[2022-11-27 08:00] VITALS: BP 108/52
[2022-11-27 08:20] LABS: CHLORIDE 108 mEq/L (98-107)
[2022-11-27] MEDS: LEVETIRACETAM 500MG TABLET PO SCH ×2 (08:34→22:26)
[2022-11-27] MEDS: ENOXAPARIN 40MG/0.4ML SYR SUBCUT SCH (08:34)
[2022-11-27] MEDS: SODIUM CHLORIDE 3% FOR INH 4ML UD NEB INH SCH ×2 (09:57→13:30)
[2022-11-27] MEDS: BUDESONIDE 0.5MG/2ML NEB HHN SCH ×2 (09:57→20:23)
[2022-11-27 12:00] VITALS: BP 85/39
[2022-11-27 16:00] VITALS: BP 93/45
[2022-11-27 20:00] VITALS: BP 91/44
[2022-11-27] MEDS: FINASTERIDE 5MG TABLET PO SCH (21:00)
[2022-11-27] MEDS: FAMOTIDINE 20MG TABLET PO SCH (22:26)
[2022-11-27] MEDS: ATORVASTATIN CALCIUM 20MG TABLET PO SCH (22:26)
[2022-11-28] VITALS: BP 94/44
[2022-11-28] MEDS: BUDESONIDE 0.5MG/2ML NEB HHN SCH ×2 (03:00→21:10)
[2022-11-28 04:00] VITALS: BP 94/47
[2022-11-28] MEDS: ALBUTEROL (0.083%) 2.5MG/3ML NEB HHN SCH ×6 (04:00→21:10)
[2022-11-28 07:44] LABS: CHLORIDE 109 mEq/L (98-107)
[2022-11-28 07:56] LABS: HEMATOCRIT 36.6 % (42.0-52.0); HEMOGLOBIN 12.8 g/dL (14.0-18.0); MEAN CORPUSCULAR HEMOGLOBIN 32.2 pg (28.0-32.0); MEAN CORPUSCULAR VOLUME 92.1 fL (80.0-94.0); PLATELET 528 x1000/uL (130-400); RED BLOOD CELL COUNT 3.98 mill/uL (4.7-6.1); RED CELL DISTRIBUTION WIDTH 13.5 % (11.6-14.6)
[2022-11-28] MEDS: ACETYLCYSTEINE 200MG/ML 20% VIAL 4ML INH SCH ×3 (08:33→21:11)
[2022-11-28] MEDS: ENOXAPARIN 40MG/0.4ML SYR SUBCUT SCH (09:11)
[2022-11-28] MEDS: LEVETIRACETAM 500MG TABLET PO SCH ×2 (09:11→21:19)
[2022-11-28 12:00] VITALS: BP 103/53
[2022-11-28 16:00] VITALS: BP 120/58
[2022-11-28 20:00] VITALS: BP 106/58
[2022-11-28] MEDS: SODIUM CHLORIDE 3% FOR INH 4ML UD NEB INH SCH (21:10)
[2022-11-28] MEDS: FAMOTIDINE 20MG TABLET PO SCH (21:19)
[2022-11-28] MEDS: ATORVASTATIN CALCIUM 20MG TABLET PO SCH (21:19)
[2022-11-28] MEDS: FINASTERIDE 5MG TABLET PO SCH (21:19)
[2022-11-29] VITALS: BP 114/66
[2022-11-29 04:00] VITALS: BP 113/74
[2022-11-29] MEDS: ALBUTEROL (0.083%) 2.5MG/3ML NEB HHN SCH ×5 (04:00→16:25)
[2022-11-29] MEDS: BUDESONIDE 0.5MG/2ML NEB HHN SCH ×3 (04:37→20:07)
[2022-11-29] MEDS: ACETYLCYSTEINE 200MG/ML 20% VIAL 4ML INH SCH ×3 (04:37→16:25)
[2022-11-29] MEDS: SODIUM CHLORIDE 3% FOR INH 4ML UD NEB INH SCH ×3 (04:37→16:25)
[2022-11-29 07:53] LABS: HEMATOCRIT 38.1 % (42.0-52.0); HEMOGLOBIN 12.9 g/dL (14.0-18.0); MEAN CORPUSCULAR HEMOGLOBIN 30.8 pg (28.0-32.0); PLATELET 549 x1000/uL (130-400); RED BLOOD CELL COUNT 4.19 mill/uL (4.7-6.1); RED CELL DISTRIBUTION WIDTH 13.8 % (11.6-14.6)
[2022-11-29 08:26] VITALS: BP 116/68
[2022-11-29 08:42] LABS: CHLORIDE 106 mEq/L (98-107)
[2022-11-29] MEDS: ENOXAPARIN 40MG/0.4ML SYR SUBCUT SCH (10:15)
[2022-11-29] MEDS: LEVETIRACETAM 500MG TABLET PO SCH ×2 (10:16→20:59)
[2022-11-29 11:36] VITALS: BP 114/50
[2022-11-29 16:30] VITALS: BP 101/50
[2022-11-29 20:00] VITALS: BP 118/57
[2022-11-29] MEDS: ATORVASTATIN CALCIUM 20MG TABLET PO SCH (20:59)
[2022-11-29] MEDS: FAMOTIDINE 20MG TABLET PO SCH (20:59)
[2022-11-29] MEDS: FINASTERIDE 5MG TABLET PO SCH (20:59)
[2022-11-30 00:09] VITALS: BP 121/62
[2022-11-30 04:00] VITALS: BP 122/69
[2022-11-30 08:00] VITALS: BP 102/51
[2022-11-30] MEDS: LEVETIRACETAM 500MG TABLET PO SCH ×2 (09:45→20:48)
[2022-11-30] MEDS: ENOXAPARIN 40MG/0.4ML SYR SUBCUT SCH (09:45)
[2022-11-30 12:00] VITALS: BP 104/52
[2022-11-30 16:00] VITALS: BP 100/54
[2022-11-30 20:00] VITALS: BP 111/59
[2022-11-30] MEDS: ATORVASTATIN CALCIUM 20MG TABLET PO SCH (20:48)
[2022-11-30] MEDS: FAMOTIDINE 20MG TABLET PO SCH (20:48)
[2022-11-30] MEDS: FINASTERIDE 5MG TABLET PO SCH (20:48)
[2022-12-01] VITALS: BP 95/55
[2022-12-01 04:00] VITALS: BP 113/58
[2022-12-01 07:01] LABS: EOSINOPHILS % 2.6 % (0.0-5.0); HEMATOCRIT. 36.8 % (42.0-52.0); HEMOGLOBIN. 12.7 g/dL (14.0-18.0); LYMPHOCYTES % 18.6 % (20.0-50.0); MEAN CORPUSCULAR HEMOGLOBIN 31.1 pg (28.0-32.0); MEAN CORPUSCULAR VOLUME 90.1 fL (80.0-94.0); MEAN PLATELET VOLUME 7.7 fl (7.4-10.4); MONOCYTES % 10.1 % (2.0-8.0); NEUTROPHILS % 67.7 % (40.0-76.0); PLATELET 451 x1000/uL (130-400); RED BLOOD CELL COUNT 4.09 mill/uL (4.7-6.1); RED CELL DISTRIBUTION WIDTH 13.7 % (11.6-14.6)
[2022-12-01 07:18] LABS: CHLORIDE 104 mEq/L (98-107)
[2022-12-01 08:00] VITALS: BP 107/56
[2022-12-01] MEDS: LEVETIRACETAM 500MG TABLET PO SCH ×2 (09:47→21:20)
[2022-12-01] MEDS: ENOXAPARIN 40MG/0.4ML SYR SUBCUT SCH (09:47)
[2022-12-01] MEDS: BUDESONIDE 0.5MG/2ML NEB HHN SCH ×2 (10:03→23:00)
[2022-12-01 12:00] VITALS: BP 105/58
[2022-12-01 16:00] VITALS: BP 105/57
[2022-12-01 20:00] VITALS: BP 119/62
[2022-12-01] MEDS: FINASTERIDE 5MG TABLET PO SCH (21:20)
[2022-12-01] MEDS: ATORVASTATIN CALCIUM 20MG TABLET PO SCH (21:20)
[2022-12-01] MEDS: FAMOTIDINE 20MG TABLET PO SCH (21:20)
[2022-12-02] VITALS: BP 109/52
[2022-12-02 04:00] VITALS: BP 98/48
[2022-12-02 06:24] LABS: HEMATOCRIT 37.4 % (42.0-52.0); HEMOGLOBIN 12.7 g/dL (14.0-18.0); MEAN CORPUSCULAR HEMOGLOBIN 30.5 pg (28.0-32.0); MEAN CORPUSCULAR VOLUME 90.1 fL (80.0-94.0); PLATELET 458 x1000/uL (130-400); RED BLOOD CELL COUNT 4.15 mill/uL (4.7-6.1); RED CELL DISTRIBUTION WIDTH 14.2 % (11.6-14.6)
[2022-12-02 07:12] LABS: CHLORIDE 105 mEq/L (98-107)
[2022-12-02 08:00] VITALS: BP_SYST 115; BP_SYST 145; BP_DIAS 61; BP_DIAS 91
[2022-12-02] MEDS: LEVETIRACETAM 500MG TABLET PO SCH (09:00)
[2022-12-02] MEDS: BUDESONIDE 0.5MG/2ML NEB HHN SCH (09:00)
[2022-12-02] MEDS: ENOXAPARIN 40MG/0.4ML SYR SUBCUT SCH (09:01)
[2022-12-02 12:00] VITALS: BP 109/51
[2022-12-02 14:28] VITALS: BP 109/51
[2022-12-02 16:00] VITALS: BP 106/52
== END 2022-12-02 16:55 | DRG 871 ==
LOC: ER 09:30 → EDBEDREQTM 13:34 → EDBEDREQ 13:34 → ENRESERV 20:38 → 7EST 23:22
PROVIDERS: ADMIT Internal Medicine; ATTEND Internal Medicine
DX: A41.89 Other specified sepsis (principal); J12.82 Pneumonia due to coronavirus disease 2019; J96.01 Acute respiratory failure with hypoxia; U07.1 COVID-19; E46 Unspecified protein-calorie malnutrition; J44.0 Chronic obstructive pulmonary disease with (acute) lower respiratory infection; Z68.1 Body mass index [BMI] 19.9 or less, adult; N39.0 Urinary tract infection, site not specified; I50.30 Unspecified diastolic (congestive) heart failure; D63.8 Anemia in other chronic diseases classified elsewhere; G40.909 Epilepsy, unspecified, not intractable, without status epilepticus; G80.8 Other cerebral palsy; I11.0 Hypertensive heart disease with heart failure; J44.9 Chronic obstructive pulmonary disease, unspecified; E78.5 Hyperlipidemia, unspecified; J98.09 Other diseases of bronchus, not elsewhere classified; N40.1 Benign prostatic hyperplasia with lower urinary tract symptoms; E87.6 Hypokalemia; T17.990A Other foreign object in respiratory tract, part unspecified in causing asphyxiation, initial encounter; Z68.30 Body mass index [BMI] 30.0-30.9, adult; Z86.73 Personal history of transient ischemic attack (TIA), and cerebral infarction without residual deficits; Z79.899 Other long term (current) drug therapy; X58.XXXA Exposure to other specified factors, initial encounter; Y93.89 Activity, other specified; Y92.89 Other specified places as the place of occurrence of the external cause; Y99.8 Other external cause status
CPT/HCPCS: 36415; 36600; 71045; 71275; 80048; 80053; 80061; 80305; 80320; 81003; 82375; 82607; 82746; 82805; 82962; 83036; 83605; 83880; 84145; 84443; 84484; 85025; 85027; 85379; 87077; 87186; 87426; 87804; 92610; 93005; 93306; 93970; 94640; 94667; 97162; 97164; 97166; 99291; C1893; C9803; J0456; J0696; J1100; J1650; J7040; J7060; J7608; J7626; Q9967; U0003; U0005; G0480

== ENCOUNTER 2023-09-12 06:25 | Emergency (ER) | payer MEDICARE, MEDICAID ==
[~2023-09-12] VITALS: Ht 165.1 cm; Wt 50.0 kg
[~2023-09-12 06:25] MED LIST changes: -ASPI-1406 PO; -FLUT1DIS3 IH; -FLUT50DI IH; -LORA10TA7 PO; +MONT-39 PO; -MULT-230 MT; +TAMS-11 PO
[2023-09-12 06:26] VITALS: O2SAT 98
[2023-09-12 08:21] LABS: CLARITY URINE CLEAR (CLEAR); COLOR URINE YELLOW (YELLOW); GLUCOSE URINE NEGATIVE (NEGATIVE); KETONES URINE NEGATIVE (NEGATIVE); LEUKOCYTE ESTERASE URINE NEGATIVE (NEGATIVE); NITRITE URINE NEGATIVE (NEGATIVE); OCCULT BLOOD URINE NEGATIVE (NEGATIVE); PROTEIN URINE NEGATIVE (NEGATIVE); SPECIFIC GRAVITY URINE 1.014 (1.005-1.030); UROBILINOGEN URINE 0.2 E.U./dL (0.2-1.0)
[2023-09-12 09:56] VITALS: BP 116/54; PULSE 79; RESP 20; TEMP 98.3
== END 2023-09-12 10:02 | disposition home or self-care (01) ==
LOC: ER 06:36
DX: R33.9 Retention of urine, unspecified (principal); I11.0 Hypertensive heart disease with heart failure; I50.9 Heart failure, unspecified; J44.1 Chronic obstructive pulmonary disease with (acute) exacerbation; Z86.73 Personal history of transient ischemic attack (TIA), and cerebral infarction without residual deficits; Z98.890 Other specified postprocedural states
CPT/HCPCS: 51702; 81003; 99284; A4315

== ENCOUNTER 2025-06-25 19:14 | Inpatient (IN) | payer OTHER ==
[~2025-06-25] VITALS: Ht 170.2 cm; Wt 45.4 kg
[~2025-06-25 19:14] MED LIST changes: +ALBU18HF2 IH; +AMLO-905 PO; -AMLO10TA4 PO; +BUDE0.5A3 IH; -TAMS-11 PO; +TAMS-54 PO
[2025-06-25 19:16] VITALS: O2SAT 98
[2025-06-25 20:51] LABS: BG BASE EXCESS 3.7 mmol/L (-2.0-3.0); BG CARBOXYHEMOGLOBIN 0.3 % (0.5-1.5); BG DEOXYHEMOGLOBIN 0.2 % (0.0-5.0); BG FLOW(L/min) 15.00 L/min; BG FRACTION INSPIRED OXYGEN 100; BG HCO3 ACT 27.6 mmol/L (21.0-28.0); BG METHEMOGLOBIN 0.3 % (0.5-1.5); BG OXYGEN SATURATION 99.8 % (94.0-98.0); BG OXYHEMOGLOBIN 99.2 % (94.0-98.0); BG PCO2 39.0 mmHg (35.0-48.0); BG PH 7.467 (7.350-7.450); BG PO2 225.4 mmHg (83.0-108.0); BG SAMPLE SITE RIGHT RADIAL; BG TOTAL HEMOGLOBIN 12.6 g/dL (13.5-17.5); BG VENT MODE MASK - NRB
[2025-06-25 21:01] LABS: CREATININE 0.8 mg/dL (0.6-1.3); TROPONIN I HIGH SENSITIVITY 11 ng/L (3.0-53); UREA NITROGEN BLOOD 9 mg/dL (9-23)
[2025-06-25 21:02] LABS: ASPARTATE AMINOTRANSFERASE 21 IU/L (<34)
[2025-06-25 21:03] LABS: BILIRUBIN DIRECT < 0.1 mg/dL (<=3.0); BILIRUBIN TOTAL 0.2 mg/dL (0.1-1.0); PROTEIN TOTAL 7.0 g/dL (6.0-8.3)
[2025-06-25 21:06] LABS: HEMATOCRIT. 37.5 % (42.0-52.0); HEMOGLOBIN. 12.0 g/dL (14.0-18.0); MEAN PLATELET VOLUME 7.2 fl (7.4-10.4); PLATELET 668 x1000/uL (130-400); RED BLOOD CELL COUNT 4.35 mill/uL (4.7-6.1); RED CELL DISTRIBUTION WIDTH 15.0 % (11.6-14.6)
[2025-06-25] MEDS: AZITHROMYCIN 500MG/250ML 250 ML IV ONE (21:13)
[2025-06-25] MEDS: SODIUM CHLORIDE 0.9% (SEPSIS BOLUS) IV ONE (21:13)
[2025-06-25 21:29] LABS: INR 1.0
[2025-06-25 21:54] LABS: EOSINOPHILS % MANUAL 1.0 % (0.0-5.0); LYMPHOCYTES % MANUAL 9.0 % (20.0-50.0); MONOCYTES % MANUAL 6.0 % (2.0-8.0); NEUTROPHILS % MANUAL 84.0 % (45.0-75.0)
[2025-06-25 21:55] LABS: PLATELET ESTIMATE MARKEDLY INCREASED
[2025-06-25] MEDS: CEFTRIAXONE 1GM/50ML 50 ML IV ONE (23:04)
[2025-06-25 23:34] LABS: TROPONIN I HIGH SENSITIVITY 42 ng/L (3.0-53)
[2025-06-26 00:19] LABS: TROPONIN I HIGH SENSITIVITY 54 ng/L (3.0-53)
[2025-06-26 00:30] VITALS: BP 89/48; PULSE 66; RESP 18; TEMP 36.696
[2025-06-26] MEDS: MIDODRINE HCL 5MG TABLET PO SCH ×2 (02:14→16:41)
[2025-06-26 08:00] VITALS: BP 74/38; PULSE 52; RESP 18; TEMP 36.5; O2SAT 98
[2025-06-26] MEDS: AMLODIPINE 10MG TABLET PO SCH (09:00)
[2025-06-26] MEDS: ATORVASTATIN CALCIUM 20MG TABLET PO SCH (09:00)
[2025-06-26] MEDS: FINASTERIDE 5MG TABLET PO SCH (10:37)
[2025-06-26] MEDS: LEVETIRACETAM 500MG TABLET PO SCH (10:38)
[2025-06-26] MEDS: ENOXAPARIN 30MG/0.3ML SYR SUBCUT SCH (10:41)
[2025-06-26] MEDS: SODIUM CHLORIDE 0.9% 250 ML IV ONE (11:00)
[2025-06-26 12:00] VITALS: BP 77/33; PULSE 60; RESP 18; TEMP 36.3; O2SAT 99
[2025-06-26 14:00] VITALS: BP 116/50; PULSE 63; RESP 19; TEMP 36.8; O2SAT 98
[2025-06-26 16:00] VITALS: BP 78/32; PULSE 61; RESP 18; TEMP 36.1; O2SAT 99
[2025-06-26] MEDS: MONTELUKAST SODIUM 10MG TABLET PO SCH (16:42)
[2025-06-26] MEDS ORDERED: MIDODRINE HCL 5MG TABLET PO SCH (17:30)
[2025-06-26 20:00] VITALS: BP 119/47; PULSE 67; RESP 18; TEMP 36.4; O2SAT 97
[2025-06-26] MEDS: CEFTRIAXONE 1GM/50ML 50 ML IV SCH (21:22)
[2025-06-26] MEDS: AZITHROMYCIN 500MG/250ML 250 ML IV SCH (21:23)
[2025-06-27] VITALS (7 sets, daily range): BP systolic 104–131; BP diastolic 41–58; PULSE 57–108; RESP 15–19; TEMP 36.4–36.8; O2SAT 95–100
[2025-06-27 06:50] LABS: BASOPHILS % 0.3 % (0.0-2.0); EOSINOPHILS % 2.0 % (0.0-5.0); HEMATOCRIT. 33.6 % (42.0-52.0); HEMOGLOBIN. 11.0 g/dL (14.0-18.0); LYMPHOCYTES % 8.6 % (20.0-50.0); MEAN PLATELET VOLUME 6.5 fl (7.4-10.4); MONOCYTES % 7.1 % (2.0-8.0); NEUTROPHILS % 82.0 % (40.0-76.0); PLATELET 551 x1000/uL (130-400); RED BLOOD CELL COUNT 3.84 mill/uL (4.7-6.1); RED CELL DISTRIBUTION WIDTH 15.1 % (11.6-14.6)
[2025-06-27 06:57] LABS: UREA NITROGEN BLOOD 11 mg/dL (9-23)
[2025-06-27 07:27] LABS: CREATININE 0.5 mg/dL (0.6-1.3)
[2025-06-27] MEDS: FUROSEMIDE 20MG/2ML VIAL IVP SCH (11:37)
[2025-06-27] MEDS: AZITHROMYCIN 500MG/250ML 250 ML IV SCH (22:48)
[2025-06-27] MEDS: IPRATROPIUM/ALBUTEROL 0.5-3(2.5)MG/3ML NEB HHN PRN (23:35)
[2025-06-28] VITALS: BP 95/40; PULSE 108; RESP 18; TEMP 36.4; O2SAT 96
[2025-06-28 04:00] VITALS: BP 101/48; PULSE 82; RESP 18; TEMP 36.3; O2SAT 95
[2025-06-28 08:09] VITALS: BP_SYST 86; BP_SYST 95; BP_DIAS 44; PULSE 66; RESP 20; TEMP 36.6; O2SAT 96
[2025-06-28 12:06] VITALS: BP 101/53; PULSE 90; RESP 18; TEMP 36.3; O2SAT 96
[2025-06-28 16:15] VITALS: BP 97/42; PULSE 72; RESP 18; TEMP 36.3; O2SAT 96
[2025-06-28 20:46] VITALS: BP 102/61; PULSE 94; RESP 20; TEMP 36.4; O2SAT 97
[2025-06-29] VITALS: BP 125/55; PULSE 81; RESP 16; TEMP 36.4
[2025-06-29 04:00] VITALS: BP 116/58; PULSE 88; RESP 20; TEMP 36.2; O2SAT 97
[2025-06-29 08:09] VITALS: BP 102/57; PULSE 82; RESP 18; TEMP 36.6; O2SAT 99
[2025-06-29] MEDS: AZITHROMYCIN 500 MG TABLET PO SCH (08:52)
[2025-06-29 12:07] VITALS: BP 104/55; PULSE 104; RESP 19; TEMP 36.7; O2SAT 96
[2025-06-29] MEDS ORDERED: LEVO750T68 MT (13:06)
[2025-06-29] MEDS ORDERED: MIDO10TA3 MT (13:06)
[2025-06-29 15:02] VITALS: BP 104/55; PULSE 96; RESP 19; TEMP 98
[2025-06-29 16:22] VITALS: BP 101/46; PULSE 92; RESP 18; TEMP 36.3; O2SAT 93
== END 2025-06-29 18:40 | disposition home or self-care (01) | DRG 871 ==
LOC: ER 19:14 → 7WST 21:48 → EDBEDREQ 21:55 → EDBEDREQTM 21:55 → ENRESERV 22:25
PROVIDERS: ADMIT Internal Medicine; ATTEND Internal Medicine
DX: A41.9 Sepsis, unspecified organism (principal); J18.9 Pneumonia, unspecified organism; J96.01 Acute respiratory failure with hypoxia; R65.21 Severe sepsis with septic shock; G93.40 Encephalopathy, unspecified; I50.32 Chronic diastolic (congestive) heart failure; J44.0 Chronic obstructive pulmonary disease with (acute) lower respiratory infection; E87.20 Acidosis, unspecified; D64.9 Anemia, unspecified; Z20.822 Contact with and (suspected) exposure to COVID-19; G40.909 Epilepsy, unspecified, not intractable, without status epilepticus; I11.0 Hypertensive heart disease with heart failure; N40.0 Benign prostatic hyperplasia without lower urinary tract symptoms; I48.91 Unspecified atrial fibrillation; G80.8 Other cerebral palsy; L89.221 Pressure ulcer of left hip, stage 1; L89.151 Pressure ulcer of sacral region, stage 1; L89.321 Pressure ulcer of left buttock, stage 1; L89.311 Pressure ulcer of right buttock, stage 1; Z79.899 Other long term (current) drug therapy; Z86.16 Personal history of COVID-19; Z86.73 Personal history of transient ischemic attack (TIA), and cerebral infarction without residual deficits
CPT/HCPCS: 36415; 36600; 71045; 76604; 80048; 80076; 82375; 82805; 83605; 83735; 83880; 84145; 84484; 85025; 87426; 93005; 94070; 94640; 99291; A4606; J0456; J0696; J1650; J1938; J7030